=== PATIENT | female | born 1985 | race Caucasian/White ===

== ENCOUNTER 2019-12-20 11:11 | Emergency (ER) | payer MEDICARE, MEDICAID, SELFPAY ==
--- NOTE | ~2019-12-20 | XR_ITS ---
EXAMINATION: XR chest 2V EXAM DATE: 12/20/2019 12:40 INDICATION: Fever, cough and congestion. TECHNIQUE: Frontal and lateral projections of the chest obtained and reviewed. Comparison is made to prior examination from 09/15/2017. FINDINGS: There are cholecystectomy clips. The lungs are clear. There are no pleural effusions. Th e cardiomediastinal silhouette is within normal limits. There is no pneumothorax suspected. The bon es and soft tissues are unremarkable. IMPRESSION: No acute cardiopulmonary findings. Reviewed, dictated and finalized at location B. LOGIST
--- NOTE | ~2019-12-20 | US_ITS ---
EXAMINATION: US right upper quadrant DATE: 12/20/2019 17:06 INDICATION: Right upper quadrant pain TECHNIQUE: Multiple grayscale and Doppler ultrasound images of the abdomen were obtained. COMPARISON: CT, 11/12/2017 FINDINGS: The pancreas is obscured by bowel gas. The liver is normal with normal echogenicity and ech otexture. No surface nodularity. Normal hepatopetal flow in the main portal vein. The gallbladder is surgically absent. The dilated common bile duct measures 10 mm. No definite common bile duct stone or stricture is identified. IMPRESSION: 1. Dilated common bile duct, more than typically expected for post cholecystectomy state. No etiology identified. Reviewed, dictated and finalized at location A. R SEPARATION DESIGNER IMPRESSION: 1. Dilated common bile duct, more than typically expected for post cholecystect allan state. No etiology identified.
--- NOTE | 2019-12-20 11:59 | PC.NURSE ---
Call to waiting room for triage, no answer.
[2019-12-20 12:13] VITALS: BP 130/82; PULSE 88; RESP 18; TEMP 37.2; O2SAT 97
[2019-12-20 12:42] LABS: Basophils Percent Auto 0.3 % (0.2-1.2); Hematocrit 43.1 % (37.0-47.0); Hemoglobin 14.4 g/dL (12.0-15.0); Lymphocytes Absolute Auto 1.17 K/mm3 (0.9-3.2); Lymphocytes Percent Auto 30.9 % (18.3-44.2); Mean Corpuscular HGB Conc 33.4 g/dl (32-36); Mean Corpuscular Hemoglobin 32.3 pg (26-34); Mean Corpuscular Volume 96.6 fl (80-100); Mean Platelet Volume 10.7 fl (7.4-10.4); Monocytes Absolute Auto 0.5 K/mm3 (0.1-0.6); Monocytes Percent Auto 14.2 % (2.6-8.5); Neutrophils Absolute Auto 2.1 K/mm3 (1.3-6.7); Neutrophils Percent Auto 54.6 % (45.5-73.1); Platelet Count Result 200 k/mm3 (150-375); Red Blood Count 4.46 M/mm3 (4.2-5.4); Red Cell Distribution Width 13.1 % (11.5-14.5); White Blood Count 3.8 K/mm3 (4.5-10.0)
[2019-12-20 12:48] LABS: Add Urine Microscopic? YES; Appearance Urine Cloudy (Clear); Bacteria Urine Trace /hpf; Bilirubin Urine Negative (Negative); Blood Urine 1+ (Negative); Color Urine Straw (Yellow); Glucose Urine UA Negative (Negative); Ketones Urine Negative (Negative); Leukocyte Esterase Ur Negative LEU/UL (Negative); Mucus Urine Rare /lpf; Nitrate Urine Negative (Negative); Protein Urine Negative (Negative); RBC Urine 0-2 /hpf (0-2); Specific Grav Ur 1.006 (1.001-1.035); Squamous Epithelial Cell Urine Many /hpf (Few); Urobilinogen Urine Negative mg/dL (<2.0); WBC Urine 0-3 /hpf
[2019-12-20 12:56] LABS: Alanine Aminotransferase 178 U/L (4-35); Albumin Level 4.7 g/dL (3.5-5.1); Alkaline Phosphatase 84 U/L (38-126); Aspartate Amino Transferase 156 U/L (14-36); Bilirubin,Total 0.6 mg/dL (0.2-1.3); Blood Urea Nitrogen 11 mg/dL (7-17); Calcium 8.9 mg/dL (8.4-10.2); Carbon Dioxide 26 mmol/L (22-30); Chloride 98 mmol/L (98-107); Estimated CRCL calculation 117 ml/min; Estimated Glomerular Filt Rate > 60; Glucose 91 mg/dL (65-105); Potassium 4.2 mmol/L (3.4-5.0); Sodium 138 mmol/L (137-145)
[2019-12-20 13:26] LABS: Monoscreen Negative (Negative); Negative Monotest Control Negative (Negative); Positive Monotest Control Positive (Positive)
--- NOTE | 2019-12-20 16:35 | ED.FEVER ---
HPI - Fever General Chief Complaint: Fever Stated Complaint: elevated liver enzymes, fever, shaking AMA Time Seen by Provider: 12/20/19 16:33 Source: patient and other (Triage note) Mode of arrival: ambulatory Limitations: no limitations History of Present Illness HPI Narrative: The pt is a 34 y/o female who presents to the ED c/o fever onset 0300 one day ago. Pt states that when she finally measured her temperature rectally, she had a temperature of 103 degrees. Pt was admitted at [facility] due to having elevated liver enzymes, but she states that she left AMA today due to not being cared for properly. Per triage note, pt received Tylenol at 1030 prior to leaving today. The pt reports myalgia, jerking, and cough. Pt reports that she has a PMHx of asthma, Bipolar disorder, and DVT. MD elicited complaint: fever Onset (ago): day(s) (1) Associated symptoms: myalgias, cough and other (jerking) Treatments prior to arrival fever: acetaminophen Related Data Home Medications Medication Instructions Recorded Confirmed albuterol sulfate 90 mcg/actuation 2 puff INHALATION Q4-6H PRN gm 10/19/19 aerosol inhaler cyclobenzaprine 10 mg tablet 10 mg PO TID 10/19/19 gabapentin 400 mg capsule 400 mg PO QID cap 10/19/19 hydrocodone 10 mg-acetaminophen 1 tablet PO Q8H PRN 10/19/19 325 mg tablet lamotrigine 150 mg tablet 150 mg PO DAILY 10/19/19 lisinopril 40 mg tablet 40 mg PO DAILY 10/19/19 lorazepam 0.5 mg tablet 0.5 mg PO DAILY PRN 10/19/19 rivaroxaban 20 mg tablet 20 mg PO QPM 10/19/19 vortioxetine 20 mg tablet 20 mg PO DAILY 10/19/19 zolpidem 10 mg tablet 10 mg PO ONCE PRN 10/19/19 cariprazine 1.5 mg capsule 1.5 mg PO DAILY 12/18/19 Allergies Allergy/AdvReac Type Severity Reaction Status Date / Time oxycodone Allergy Intermediate lip Verified 12/18/19 11:14 swelling propoxyphene Allergy Intermediate hives, lip Verified 12/18/19 11:14 swelling latex Allergy Unknown Rash Verified 12/18/19 11:14 Contrast Media AdvReac Mild itching Uncoded 12/18/19 11:14 only Review of Systems Review of Systems: All systems reviewed & are unremarkable except as noted in HPI and below Constitutional: Constitutional: Reports fever(s) Respiratory: Respiratory: Reports cough Musculoskeletal: Musculoskeletal: Reports myalgias Neurologic: Reports other (Jerking) [facility] Past Medical History Medical History (Updated 12/20/19 @ 17:11 by Gera Yap) Abnormal uterine bleeding Anxiety Arthritis Asthma Bipolar 1 disorder Depression DVT (deep venous thrombosis) Endometriosis Fibroids GERD (gastroesophageal reflux disease) GI bleed HLD (hyperlipidemia) HTN (hypertension) Kidney stones Left ovarian cyst Leg fracture, left Pancreatitis PID (pelvic inflammatory disease) Pneumonia Previous known suicide attempt PTSD (post-traumatic stress disorder) PUD (peptic ulcer disease) Surgical History Surgical History (Updated 12/20/19 @ 17:11 by Gera Yap) H/O hand surgery H/O ovarian cystectomy Left H/O vascular surgery Left leg vein graft H/O: hysterectomy History of appendectomy History of cholecystectomy History of kidney surgery Ureteral stent History of left knee replacement Hx of tonsillectomy Family History Family History (Updated 06/05/16 @ 23:19 by DOCTOR UNKNOWN) Mother Hypertension Father Hypertension Family history of alcoholism Family history of diabetes mellitus in first degree relative Patient's father is in good health Sibling Family history of diabetes mellitus in first degree relative Social History Social History Smoking status: Never smoker Second hand tobacco smoke exposure: No Alcohol intake: never Gender identity (if verbalized by the patient): Female Comments PCP: Dr. Quiroz Exam Const: General: no acute distress and alert Orientation/consciousness: patient oriented x3 HENMT: Head: normal to inspection Eyes:
[2019-12-20 16:37] VITALS: BP 152/99; PULSE 91; O2SAT 99
[2019-12-20 16:43] VITALS: TEMP 37.5
[2019-12-20 17:46] VITALS: BP 131/80
== END 2019-12-20 17:47 | disposition home or self-care (01) ==
PROVIDERS: Emergency Medicine; Emergency Provider Family Medicine; PCP Internal Medicine
DX: J10.1 Influenza due to other identified influenza virus with other respiratory manifestations (principal); R94.5 Abnormal results of liver function studies; J45.909 Unspecified asthma, uncomplicated; Z86.718 Personal history of other venous thrombosis and embolism; F31.9 Bipolar disorder, unspecified; F41.9 Anxiety disorder, unspecified; K21.9 Gastro-esophageal reflux disease without esophagitis; E78.5 Hyperlipidemia, unspecified; I10 Essential (primary) hypertension; F43.10 Post-traumatic stress disorder, unspecified; Z96.652 Presence of left artificial knee joint
CPT/HCPCS: 36415; 71046; 76705; 80053; 81001; 85025; 86308; 87804; 99284

== ENCOUNTER 2019-12-24 13:39 | Emergency (ER) | payer MEDICARE, MEDICAID, SELFPAY ==
[2019-12-24 13:47] VITALS: BP 142/101; PULSE 89; RESP 16; TEMP 36.8; O2SAT 99
--- NOTE | 2019-12-24 15:07 | ED.WEAKNESS ---
HPI - Weakness General Chief complaint: Weakness Stated complaint: flu, v/d Time Seen by Provider: 12/24/19 15:07 Source: patient Mode of arrival: ambulatory Limitations: no limitations History of Present Illness HPI Narrative: A 34 y/o female presents to the ED with c/o generalized weakness. Pt states she was seen by her PCP on Wednesday (6 days ago) and was told that she had elevated liver enzymes, however it was nothing to be too concerned about. 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 Pt's liver specialist is at [facility]. Pt has tested negative for Hepatitis B and C in the past. Pt's liver enzymes can run into the 1000s and she is on Metformin to regulate this. Pt was seen at [facility] on Wednesday (5 days ago) and was negative for the flu but was admitted for high liver enzymes. Pt signed out AMA on Wednesday (4 days ago) and came to [place] for evaluation the same day. Pt tested positive for the flu and was d/c with Tamaflu. Pt reports body shakes and states that she has felt dizzy all day. Pt's LNMP was in May 2017 and notes that she had a partial hysterectomy due to endometriosis. She reports N/V x3 today and occasional alcohol use, but denies diarrhea, constipation, dysuria, urinary frequency, and smoking. Location: generalized Related Data Home Medications Medication Instructions Recorded Confirmed albuterol sulfate 90 mcg/actuation 2 puff INHALATION Q4-6H PRN gm 10/19/19 12/24/19 aerosol inhaler cyclobenzaprine 10 mg tablet 10 mg PO TID 10/19/19 12/24/19 gabapentin 400 mg capsule 400 mg PO QID cap 10/19/19 12/24/19 hydrocodone 10 mg-acetaminophen 1 tablet PO Q8H PRN 10/19/19 12/24/19 325 mg tablet lamotrigine 150 mg tablet 150 mg PO DAILY 10/19/19 12/24/19 lisinopril 40 mg tablet 40 mg PO DAILY 10/19/19 12/24/19 lorazepam 0.5 mg tablet 0.5 mg PO DAILY PRN 10/19/19 12/24/19 rivaroxaban 20 mg tablet 20 mg PO QPM 10/19/19 12/24/19 vortioxetine 20 mg tablet 20 mg PO DAILY 10/19/19 12/24/19 zolpidem 10 mg tablet 10 mg PO ONCE PRN 10/19/19 12/24/19 cariprazine 1.5 mg capsule 1.5 mg PO DAILY 12/18/19 12/24/19 Allergies Allergy/AdvReac Type Severity Reaction Status Date / Time oxycodone Allergy Intermediate lip Verified 12/24/19 15:27 swelling propoxyphene Allergy Intermediate hives, lip Verified 12/24/19 15:27 swelling latex Allergy Unknown Rash Verified 12/24/19 15:27 Contrast Media AdvReac Mild itching Uncoded 12/24/19 15:27 only Review of Systems Review of Systems: All systems reviewed & are unremarkable except as noted in HPI and below Constitutional: Constitutional: Reports weakness (generalized) Comments: Reports: body shakes Gastrointestinal: Gastrointestinal: Denies constipation, Denies diarrhea, Reports nausea and Reports vomiting (x3) Genitourinary: Genitourinary: Denies nocturia and Denies dysuria Neurologic: Reports dizziness PMFSH Past Medical History Medical History Abnormal uterine bleeding Anxiety Arthritis Asthma Bipolar 1 disorder Depression DVT (deep venous thrombosis) Endometriosis Fibroids GERD (gastroesophageal reflux disease) GI bleed HLD (hyperlipidemia) HTN (hypertension) Kidney stones Left ovarian cyst Leg fracture, left Pancreatitis PID (pelvic inflammatory disease) Pneumonia Previous known suicide attempt PTSD (post-traumatic stress disorder) PUD (peptic ulcer disease) Surgical History Surgical History H/O hand surgery H/O ovarian cystectomy Left H/O vascular surgery Left leg vein graft H/O: hysterectomy History of appendectomy History of cholecystectomy History of kidney surgery Ureteral stent History of left knee replacement Hx of tonsillectomy Family History Family History Mother Hypertension Father Hypertension Family h
[2019-12-24 15:24] VITALS: BP 141/102; PULSE 77; RESP 20; O2SAT 100
[2019-12-24 15:39] LABS: Basophils Percent Auto 0.1 % (0.2-1.2); Eosinophils Percent Auto 0.4 % (0-4.4); Hematocrit 43.9 % (37.0-47.0); Hemoglobin 14.7 g/dL (12.0-15.0); Immature Granulocyte Absolute 0.01 K/mm3 (0.00-0.031); Immature Granulocyte Percent A 0.1 % (0-0.5); Lymphocytes Percent Auto 37.2 % (18.3-44.2); Mean Corpuscular HGB Conc 33.5 g/dl (32-36); Mean Corpuscular Volume 95.6 fl (80-100); Mean Platelet Volume 10.6 fl (7.4-10.4); Monocytes Absolute Auto 0.6 K/mm3 (0.1-0.6); Monocytes Percent Auto 8.3 % (2.6-8.5); Neutrophils Absolute Auto 3.6 K/mm3 (1.3-6.7); Neutrophils Percent Auto 53.9 % (45.5-73.1); Platelet Count Result 225 k/mm3 (150-375); Red Blood Count 4.59 M/mm3 (4.2-5.4); White Blood Count 6.7 K/mm3 (4.5-10.0)
[2019-12-24 15:48] LABS: Alanine Aminotransferase 159 U/L (4-35); Albumin Level 4.4 g/dL (3.5-5.1); Alkaline Phosphatase 74 U/L (38-126); Aspartate Amino Transferase 117 U/L (14-36); Bilirubin,Total 0.5 mg/dL (0.2-1.3); Blood Urea Nitrogen 11 mg/dL (7-17); Calcium 9.2 mg/dL (8.4-10.2); Carbon Dioxide 24 mmol/L (22-30); Chloride 104 mmol/L (98-107); Estimated CRCL calculation 151 ml/min; Estimated Glomerular Filt Rate > 60; Glucose 106 mg/dL (65-105); Lipase 173 U/L (23-300); Potassium 3.8 mmol/L (3.4-5.0); Sodium 139 mmol/L (137-145)
[2019-12-24 16:05] LABS: Add Urine Microscopic? NO; Appearance Urine Clear (Clear); Bilirubin Urine Negative (Negative); Blood Urine Negative (Negative); Color Urine Straw (Yellow); Glucose Urine UA Negative (Negative); Ketones Urine Negative (Negative); Leukocyte Esterase Ur Negative LEU/UL (Negative); Nitrate Urine Negative (Negative); Protein Urine Negative (Negative); Specific Grav Ur 1.008 (1.001-1.035); Urobilinogen Urine Negative mg/dL (<2.0)
[2019-12-24] MEDS: METOCLOPRAMIDE HCL INJ 10 MG/2 ML VIAL (16:20)
[2019-12-24 16:35] VITALS: BP 125/95; PULSE 74; RESP 18; TEMP 36.4; O2SAT 95
== END 2019-12-24 16:38 | disposition home or self-care (01) ==
PROVIDERS: Emergency Provider Emergency Medicine; PCP Internal Medicine
DX: B34.9 Viral infection, unspecified (principal); M19.90 Unspecified osteoarthritis, unspecified site; J45.909 Unspecified asthma, uncomplicated; Z86.718 Personal history of other venous thrombosis and embolism; N80.9 Endometriosis, unspecified; K21.9 Gastro-esophageal reflux disease without esophagitis; E78.5 Hyperlipidemia, unspecified; I10 Essential (primary) hypertension; Z87.442 Personal history of urinary calculi; Z87.11 Personal history of peptic ulcer disease; Z96.652 Presence of left artificial knee joint; F41.9 Anxiety disorder, unspecified; F31.9 Bipolar disorder, unspecified; F43.10 Post-traumatic stress disorder, unspecified; Z79.01 Long term (current) use of anticoagulants
CPT/HCPCS: 36415; 80053; 81003; 83690; 85025; 96374; 99284; J1200; J2765

== ENCOUNTER 2020-04-24 13:53 | Emergency (ER) | payer MEDICARE, MEDICAID, SELFPAY ==
--- NOTE | ~2020-04-24 | CT_ITS ---
EXAMINATION: CT abdomen pelvis wo con DATE: 04/24/2020 15:05 INDICATION: Nausea, vomiting, and diarrhea. Abdominal pain. TECHNIQUE: Computed tomography (CT) of the abdomen and pelvis was performed without intravenous contr ast. Automated exposure control and iterative reconstruction technique were employed. The dose-length product was 1569.71 mGy-cm. COMPARISON: CT abdomen and pelvis 11/12/2017 FINDINGS: The visualized portions of the lung bases demonstrate mild atelectasis. No pleural effusion . The heart size is normal. No pericardial effusion. The liver is normal. There are changes of cholec ystectomy. The spleen, pancreas, adrenal glands, and right kidney are normal. There is a 1.5 cm hemor rhagic cyst in left kidney. There is no urolithiasis. There is a 3.7 cm cyst in left ovary. There are no dilated loops of bowel. There are no pathologically enlarged lymph nodes. There is no free intrap eritoneal fluid. There is mild thoracolumbar spondylosis. IMPRESSION: 1. 3.7 cm cyst in left ovary, likely a follicular cyst. Reviewed, dictated and finalized at location A.
--- NOTE | ~2020-04-24 | NM_ITS ---
EXAMINATION: NM pulmonary perfusion DATE: 04/24/2020 17:45 INDICATION: Flank pain and dyspnea TECHNIQUE: 5.24 mCi Tc-99m MAA by intravenous route. Scintigraphic images of the chest were obtained . COMPARISON: Chest radiograph dated 04/24/2020 and VQ scan dated 09/15/2017 FINDINGS: No interval change in relatively homogeneous perfusion throughout the lungs. No discrete perfusion d efects identified. IMPRESSION: 1. Normal perfusion scan of the lungs. Reviewed, dictated and finalized at location A.
--- NOTE | ~2020-04-24 | XR_ITS ---
EXAMINATION: XR chest 1V portable DATE: 04/24/2020 17:09 INDICATION: Right flank pain. TECHNIQUE: frontal view of the chest was obtained. COMPARISON: Chest radiograph dated 12/20/2019 FINDINGS: The lungs remain clear with no focal airspace opacities, pulmonary edema, pleural effusion or pneumot horax. The cardiomediastinal silhouette is normal. Cholecystectomy clips the right upper quadrant. IMPRESSION: 1. No acute cardiopulmonary disease. Reviewed, dictated and finalized at location A.
[2020-04-24 14:09] VITALS: BP 139/98; PULSE 70; RESP 16; TEMP 36.6; O2SAT 100
[2020-04-24 14:25] LABS: Basophils Percent Auto 0.4 % (0.2-1.2); Eosinophils Absolute Auto 0.2 K/mm3 (0-0.3); Eosinophils Percent Auto 1.8 % (0-4.4); Hematocrit 45.1 % (37.0-47.0); Hemoglobin 15.1 g/dL (12.0-15.0); Immature Granulocyte Absolute 0.02 K/mm3 (0.00-0.031); Immature Granulocyte Percent A 0.2 % (0-0.5); Lymphocytes Absolute Auto 2.62 K/mm3 (0.9-3.2); Mean Corpuscular HGB Conc 33.5 g/dl (32-36); Mean Corpuscular Hemoglobin 32.3 pg (26-34); Mean Corpuscular Volume 96.4 fl (80-100); Mean Platelet Volume 10.4 fl (7.4-10.4); Monocytes Absolute Auto 0.4 K/mm3 (0.1-0.6); Monocytes Percent Auto 4.2 % (2.6-8.5); Neutrophils Absolute Auto 5.8 K/mm3 (1.3-6.7); Neutrophils Percent Auto 64.4 % (45.5-73.1); Platelet Count Result 280 k/mm3 (150-375); Red Blood Count 4.68 M/mm3 (4.2-5.4); Red Cell Distribution Width 12.4 % (11.5-14.5)
--- NOTE | 2020-04-24 14:29 | ED.ABDPAIN ---
HPI - Abdominal Pain General Chief Complaint: Abdominal Pain Stated Complaint: ABD PAIN Time Seen by Provider: 04/24/20 14:20 Source: RN notes reviewed History of Present Illness HPI narrative: Patient presents emergency department from home for abdominal pain. Patient states pain began 3 days ago. Pain is located right upper quadrant does not radiate. Described as cramping in nature and worse with eating. She notes associated nausea vomiting and diarrhea. Denies any fevers or chills chest pain shortness of breath or any other symptoms. Patient states she has taken no pain medication at home for the pain. Related Data Home Medications Medication Instructions Recorded Confirmed cyclobenzaprine 10 mg tablet 10 mg PO TID 10/19/19 12/24/19 gabapentin 400 mg capsule 400 mg PO QID cap 10/19/19 12/24/19 hydrocodone 10 mg-acetaminophen 1 tablet PO Q8H PRN 10/19/19 12/24/19 325 mg tablet lamotrigine 150 mg tablet 150 mg PO DAILY 10/19/19 12/24/19 lisinopril 40 mg tablet 40 mg PO DAILY 10/19/19 12/24/19 lorazepam 0.5 mg tablet 0.5 mg PO DAILY PRN 10/19/19 12/24/19 rivaroxaban 20 mg tablet 20 mg PO QPM 10/19/19 12/24/19 vortioxetine 20 mg tablet 20 mg PO DAILY 10/19/19 12/24/19 zolpidem 10 mg tablet 10 mg PO ONCE PRN 10/19/19 12/24/19 cariprazine 1.5 mg capsule 1.5 mg PO DAILY 12/18/19 12/24/19 Allergies Allergy/AdvReac Type Severity Reaction Status Date / Time oxycodone Allergy Intermediate lip Verified 12/24/19 15:27 swelling propoxyphene Allergy Intermediate hives, lip Verified 12/24/19 15:27 swelling latex Allergy Unknown Rash Verified 12/24/19 15:27 Contrast Media AdvReac Mild itching Uncoded 12/24/19 15:27 only Review of Systems Review of Systems: Narrative: Gen.: Denies fevers or chills ENT: Denies congestion Respiratory: Denies shortness of breath or cough CV: Denies chest pain or palpitations GI: See HPI denies burning, urgency, frequency or hematuria Musculoskeletal: Denies back pain or muscle pain Neuro: Denies numbness, tingling, weakness or focal weakness Skin: Denies rash Except as documented, all other systems reviewed and negative FORMERLY [facility] Past Medical History Medical History Abnormal uterine bleeding Anxiety Arthritis Asthma Bipolar 1 disorder Depression DVT (deep venous thrombosis) Endometriosis Fibroids GERD (gastroesophageal reflux disease) GI bleed HLD (hyperlipidemia) HTN (hypertension) Kidney stones Left ovarian cyst Leg fracture, left Pancreatitis PID (pelvic inflammatory disease) Pneumonia Previous known suicide attempt PTSD (post-traumatic stress disorder) PUD (peptic ulcer disease) Social History Social History Smoking status: Never smoker Second hand tobacco smoke exposure: No Alcohol intake: never Gender identity (if verbalized by the patient): Female Exam Narrative: Exam Narrative: APPEARANCE: No acute distress, nontoxic, resting in bed HEENT: Normocephalic, atraumatic, OMM RESPIRATORY: No respiratory distress, clear to auscultation bilaterally with no rhonchi wheezing or rales CARDIOVASCULAR: RRR s murmur ABDOMINAL: Soft, nondistended, tender palpation right upper quadrant, no tenderness left upper quadrant left lower quadrant lower quadrant, no rebound or guarding MUSCULOSKELETAl: Moves all extremities. No clubbing, cyanosis or edema. NEURO: Awake and alert. Following commands, speech normal, no focal deficits SKIN:: Warm, dry. Normal Color PSYCHIATRIC: Normal affect/mood Course Course Emergency Course: Patient states that they are feeling much better at this time. States abdominal pain has improved. Repeat abdominal exam shows the patient's abdomen to be soft with no surgical abdomen present discussed with patient results of workup and diagnosis. Discussed need for follow-up with primary care physician, reasons to return to the emergency d
[2020-04-24 14:33] LABS: Add Urine Microscopic? YES; Appearance Urine Clear (Clear); Bacteria Urine Trace /hpf; Bilirubin Urine Negative (Negative); Blood Urine Negative (Negative); Color Urine Yellow (Yellow); Glucose Urine UA Negative (Negative); Ketones Urine Negative (Negative); Leukocyte Esterase Ur Negative LEU/UL (Negative); Nitrate Urine Negative (Negative); Protein Urine Negative (Negative); RBC Urine 0-2 /hpf (0-2); Specific Grav Ur 1.011 (1.001-1.035); Squamous Epithelial Cell Urine Many /hpf (Few); Urobilinogen Urine Negative mg/dL (<2.0)
[2020-04-24 14:36] LABS: Alanine Aminotransferase 42 U/L (4-35); Albumin Level 4.2 g/dL (3.5-5.1); Alkaline Phosphatase 61 U/L (38-126); Aspartate Amino Transferase 45 U/L (14-36); Bilirubin,Total 0.2 mg/dL (0.2-1.3); Blood Urea Nitrogen 12 mg/dL (7-17); Calcium 9.2 mg/dL (8.4-10.2); Carbon Dioxide 28 mmol/L (22-30); Chloride 105 mmol/L (98-107); Estimated CRCL calculation 131 ml/min; Estimated Glomerular Filt Rate > 60; Glucose 94 mg/dL (65-105); Lipase 111 U/L (23-300); Potassium 4.5 mmol/L (3.4-5.0); Sodium 139 mmol/L (137-145)
[2020-04-24] MEDS: SODIUM CHLORIDE 0.9% IV 1,000 ML 999 ML IV CONT (14:44)
[2020-04-24] MEDS: KETOROLAC 30 MG/ML VIAL (*BKC) IV PUSH (14:45)
[2020-04-24] MEDS: ONDANSETRON INJ 4 MG/2 ML VIAL IV PUSH (14:45)
[2020-04-24] MEDS: MORPHINE SULFATE 4 MG/ML INJ IV PUSH (16:08)
[2020-04-24] MEDS: PROMETHAZINE HCL 25 MG/ML AMPUL 12.5 MG IV PUSH (16:22)
== END 2020-04-24 18:29 | disposition home or self-care (01) ==
PROVIDERS: Emergency Provider Emergency Medicine; PCP Internal Medicine
DX: R10.11 Right upper quadrant pain (principal); N83.202 Unspecified ovarian cyst, left side; M19.90 Unspecified osteoarthritis, unspecified site; F41.9 Anxiety disorder, unspecified; J45.909 Unspecified asthma, uncomplicated; F31.9 Bipolar disorder, unspecified; Z86.718 Personal history of other venous thrombosis and embolism; K21.9 Gastro-esophageal reflux disease without esophagitis; E78.5 Hyperlipidemia, unspecified; I10 Essential (primary) hypertension; Z87.442 Personal history of urinary calculi; Z86.711 Personal history of pulmonary embolism
CPT/HCPCS: 36415; 71045; 74176; 78580; 80053; 81001; 83690; 85025; 96361; 96374; 96375; 99284; A9270; A9540; J1885; J2270; J2405; J2550; J7030

== ENCOUNTER 2020-06-19 11:01 | Outpatient (CLI) | payer MEDICARE, MEDICAID, SELFPAY ==
[2020-06-19 12:12] LABS: Alanine Aminotransferase 41 U/L (4-35); Albumin Level 4.3 g/dL (3.5-5.1); Alkaline Phosphatase 71 U/L (38-126); Anion Gap 6 mmol/L (8-16); Aspartate Amino Transferase 34 U/L (14-36); Bilirubin,Total 0.4 mg/dL (0.2-1.3); Blood Urea Nitrogen 15 mg/dL (7-17); Calcium 9.2 mg/dL (8.4-10.2); Carbon Dioxide 25 mmol/L (22-30); Chloride 105 mmol/L (98-107); Estimated Glomerular Filt Rate > 60; Glucose 97 mg/dL (65-105); Lipase 125 U/L (23-300); Potassium 4.1 mmol/L (3.4-5.0); Sodium 136 mmol/L (137-145)
[2020-06-22 22:48] LABS: NIL 0.05 IU/mL; Quantiferon TB Plus, 1T NEGATIVE (NEGATIVE); TB1-NIL <0.00 IU/mL; TB2-NIL <0.00 IU/mL
== END 2020-06-19 11:02 | disposition home or self-care (01) ==
LOC: ANHLAB 11:04
PROVIDERS: PCP Physician Assistant; Visit Provider Internal Medicine
DX: R10.9 Unspecified abdominal pain (principal); Z20.1 Contact with and (suspected) exposure to tuberculosis
CPT/HCPCS: 36415; 80053; 83690; 86480

== ENCOUNTER 2020-07-31 10:36 | Outpatient (CLI) | payer MEDICARE, MEDICAID, SELFPAY ==
--- NOTE | 2020-08-21 07:17 | SLEEP_ITS ---
Home Sleep Test DATE OF STUDY: 07/31/2020 ORDERING PHYSICIAN: Quique Quiroz D.O. REASON FOR STUDY: Hypersomnia. HISTORY: This patient is a 35-year-old female, 5 feet 10 inches tall, weighing 250 pounds with a body mass index of 35.8. She has excessive daytime fatigue and sleepiness. This has been going on for several years. She does snore, she constantly has trouble sleeping when she has a cold. She occasionally gasps for breath at night and has breathing problems at night observed by others. She occasionally sweats excessively at night. She frequently notices her heart pounding or beating irregularly at night. She does not fall asleep during the day. She does not fall asleep involuntarily or while driving. She does not fall asleep during physical effort. She occasionally has loss of muscle tone with strong emotion. Occasionally has daytime difficulties due to excessive sleepiness, occasionally feels paralyzed when waking or falling asleep, and occasionally has vivid dreamlike scenes upon awakening or falling asleep. She frequently is afraid to go to sleep, frequently has nightmares, constantly remembers her dreams, and frequently has racing thoughts. She occasionally has feelings of sadness and depression and constantly has anxiety. She frequently has muscular tension, constantly notices parts of her body jerking, and constantly kicks at night. She frequently has crawly, achy feelings in her legs, occasionally has leg pain at night, does not have morning jaw pain. She occasionally grinds her teeth during sleep. She constantly is bothered by pain during the day. She occasionally is awakened by pain at night. She constantly wakes up feeling stiff in the morning with sore achy muscles and pain in the neck and spine. She has panic, insomnia, tremors, poor appetite, headaches, and takes antacids regularly. Normal bedtime is 10 p.m., taking 2 to 3 hours to fall asleep, typically waking 4 to 6 times at night, and staying awake between 15 and 20 minutes, sometimes up to an hour. 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 When she wakes at night, she will often go to the bathroom. If she has had a nightmare, she may stay up. Her normal wake up time is 6 a.m. On the weekends, she may stay awake later between 10 p.m. and midnight and wake at 7 a.m. She estimates somewhere between 2 and 4 hours of sleep each night. She is not getting enough sleep and this prevents her from having social activities. She denies taking naps. A short nap is not refreshing. She is usually drowsy in the morning for 2 hours. She feels better in the afternoon. MEDICAL COMORBIDITIES: Anemia, PTSD, manic depression, asthma, heartburn, diarrhea, and kidney stones. MEDICATIONS: 1. Zolpidem 100 mg at bedtime. 2. Gabapentin 400 mg 4 times a day. 3. Lisinopril 40 mg a day. 4. Esomeprazole 40 mg a day. 5. Ventolin inhaler 2 puffs q.6 hours p.r.n. 6. Hydrocodone 10/325 one tablet every 6 hours p.r.n. HABITS: Never smoked tobacco. Caffeine, she drinks coffee daily. No alcohol or recreational drugs. DESCRIPTION OF THE STUDY: On the [place] Sleepiness Scale, her score is elevated at 12. This was conducted as an unattended type 3 portable home sleep test using 4-channel monitoring including respiratory effort channel, snoring channel, oxygen saturation channel, and heart rate channel. The study was scored using [facility] guidelines. Duration of the testing was 7 hours 47 minutes. The apnea-hypopnea index was 3.3, which is within the normal range. Oxygen desaturation index is 2.7, which is normal. The lowest desaturation is 92% within the normal range. The patient had 6 apneas. The majority of these 5/6, 83% were obstructive, 1 apnea was central, 17%. She had 20 h
== END 2020-07-31 10:37 | disposition home or self-care (01) ==
LOC: ANHCSM 10:37
PROVIDERS: PCP Physician Assistant; Visit Provider Internal Medicine
DX: G47.10 Hypersomnia, unspecified (principal); R53.83 Other fatigue
CPT/HCPCS: 95806

== ENCOUNTER 2020-08-11 05:23 | Emergency (ER) | payer MEDICARE, MEDICAID, SELFPAY ==
--- NOTE | ~2020-08-11 | CT_ITS ---
EXAMINATION: CT abdomen pelvis wo con EXAM DATE: 08/11/2020 06:35 INDICATION: Abdominal pain and vomiting. TECHNIQUE: Spiral CT of the abdomen and pelvis was performed without contrast. Axial, coronal and s agittal images were reviewed. The dose-length product (DLP) for this examination was 1386.89 mGy-cm. The exposure was tailored according to patient size (auto mA exposure control), and iterative recon struction (ASIR) was used as additional dose reduction technique. Comparison is made to prior examina tion from 04/24/2020. FINDINGS: Liver dome was excluded from the study. The liver, spleen, adrenal glands and pancreas are unremarkable. There are cholecystectomy clips. There is no nephrolithiasis or hydronephrosis. Ther e is a left renal hemorrhagic cyst measuring 1.4 cm. The uterus is not identified and has likely been surgically resected. The bladder is unremarkable. There is no retroperitoneal or pelvic lymphadeno leticia. The appendix is normal. The stomach and small bowel are unremarkable. There is expected amount of c olonic stool. No free intraperitoneal gas. The heart is normal in size. There are no pericardial or pleural effusions. The lung bases are unremarkable. There are no osteoblastic or osteolytic les ions identified. IMPRESSION: 1. No acute intra-abdominal findings. Reviewed, dictated and finalized at location A.
[2020-08-11 05:36] VITALS: BP 148/96; PULSE 80; RESP 20; TEMP 36.8; O2SAT 97
--- NOTE | 2020-08-11 05:41 | ED.ABDPAIN ---
HPI - Abdominal Pain General Chief Complaint: Abdominal Pain <Cindy Ya MD - Last Filed: 08/11/20 19:43> Stated Complaint: flank pain <Cindy Ya MD - Last Filed: 08/11/20 19:43> Time Seen by Provider: 08/11/20 05:24 <Cindy Ya MD - Last Filed: 08/11/20 19:43> Source: patient <Cindy Ya MD - Last Filed: 08/11/20 19:43> Mode of arrival: EMS <Cindy Ya MD - Last Filed: 08/11/20 19:43> Limitations: no limitations <Cindy Ya MD - Last Filed: 08/11/20 19:43> History of Present Illness HPI narrative: This patient is a 35 year old female with history of chronic pain who presents for evaluation of lower abdominal pain and lower back pain. This pain has been present for past 4 days. She report associated nausea, vomiting and intermittent hematuria. She denies fever or chills. She takes hydrocodone 10 mg/325 mg and her last dose was yesterday. <Cindy Ya MD - Last Filed: 08/11/20 19:43> MD elicited complaint: abdominal pain <Cindy Ya MD - Last Filed: 08/11/20 19:43> Related Data Home Medications: Home Medications Medication Instructions Recorded Confirmed cyclobenzaprine 10 mg tablet 10 mg PO TID 10/19/19 12/24/19 gabapentin 400 mg capsule 400 mg PO QID cap 10/19/19 12/24/19 hydrocodone 10 mg-acetaminophen 1 tablet PO Q8H PRN 10/19/19 12/24/19 325 mg tablet lamotrigine 150 mg tablet 150 mg PO DAILY 10/19/19 12/24/19 lorazepam 0.5 mg tablet 0.5 mg PO DAILY PRN 10/19/19 12/24/19 rivaroxaban 20 mg tablet 20 mg PO QPM 10/19/19 12/24/19 vortioxetine 20 mg tablet 20 mg PO DAILY 10/19/19 12/24/19 zolpidem 10 mg tablet 10 mg PO ONCE PRN 12/12/19 02/16/20 cariprazine 1.5 mg capsule 1.5 mg PO DAILY 12/18/19 12/24/19 lurasidone 40 mg tablet 40 mg PO DAILY 06/19/20 <Cindy Ya MD - Last Filed: 08/11/20 19:43> Allergies/Adverse Reactions: Allergies Allergy/AdvReac Type Severity Reaction Status Date / Time oxycodone Allergy Intermediate lip Verified 08/11/20 06:39 swelling propoxyphene Allergy Intermediate hives, lip Verified 08/11/20 06:39 swelling Iodinated Contrast Media Allergy Unknown Itching Verified 08/11/20 07:02 latex Allergy Unknown Rash Verified 08/11/20 06:39 Contrast Media AdvReac Mild itching Uncoded 08/11/20 06:39 only <Cindy Ya MD - Last Filed: 08/11/20 19:43> Review of Systems Review of Systems: All systems reviewed & are unremarkable except as noted in HPI and below <Cindy Ya MD - Last Filed: 08/11/20 19:43> [facility] Social History Social History: Social History Smoking status: Never smoker Second hand tobacco smoke exposure: No Alcohol intake: never Gender identity (if verbalized by the patient): Female <Cindy Ya MD - Last Filed: 08/11/20 19:43> Exam Const: General: alert <Cindy Ya MD - Last Filed: 08/11/20 19:43> Orientation/consciousness: patient oriented x3 <Cindy Ya MD - Last Filed: 08/11/20 19:43> Chest: Chest palpation & inspection: normal inspection of the chest <Cindy Ya MD - Last Filed: 08/11/20 19:43> Resp: Effort & Inspection: normal respiratory effort and no retractions <Cindy Ya MD - Last Filed: 08/11/20 19:43> Auscultation: clear to auscultation bilaterally <Cindy Ya MD - Last Filed: 08/11/20 19:43> Cardio: Rate: regular rate <Cindy Ya MD - Last Filed: 08/11/20 19:43> Rhythm: regular rhythm <Cindy Ya MD - Last Filed: 08/11/20 19:43> Heart sounds: no murmurs <Cindy Ya MD - Last Filed: 08/11/20 19:43> GI: GI Palp: Yes Soft to palpation, Yes Tenderness to palpation present (GI), No Guarding due to palpation present (GI), No Rigid due to palpation and No Hernia present <Cindy Ya MD - Last Filed: 08/11/20 19:43> : General: Yes no CVA tenderness <Bernard
[2020-08-11] MEDS: ONDANSETRON INJ 4 MG/2 ML VIAL IV PUSH (06:07)
[2020-08-11] MEDS: KETOROLAC 30 MG/ML VIAL (*BKC) IV PUSH (06:07)
[2020-08-11] MEDS: SODIUM CHLORIDE 0.9% IV 1,000 ML 999 ML IV CONT (06:07)
[2020-08-11 06:34] LABS: Add Urine Microscopic? YES; Appearance Urine Clear (Clear); Bilirubin Urine Negative (Negative); Blood Urine Negative (Negative); Color Urine Yellow (Yellow); Glucose Urine UA Negative (Negative); Ketones Urine Negative (Negative); Leukocyte Esterase Ur Trace LEU/UL (Negative); Mucus Urine Moderate /lpf; Nitrate Urine Negative (Negative); Protein Urine Negative (Negative); RBC Urine 0-2 /hpf (0-2); Specific Grav Ur 1.023 (1.001-1.035); Squamous Epithelial Cell Urine Moderate /hpf (Few); Urobilinogen Urine Negative mg/dL (<2.0); WBC Urine 0-3 /hpf
[2020-08-11 06:52] LABS: Basophils Absolute Auto 0.1 K/mm3 (0.0-0.1); Basophils Percent Auto 0.4 % (0.2-1.2); Eosinophils Absolute Auto 0.2 K/mm3 (0-0.3); Eosinophils Percent Auto 2.1 % (0-4.4); Hematocrit 40.5 % (37.0-47.0); Immature Granulocyte Absolute 0.03 K/mm3 (0.00-0.031); Immature Granulocyte Percent A 0.3 % (0-0.5); Lymphocytes Percent Auto 27.6 % (18.3-44.2); Mean Corpuscular HGB Conc 34.6 g/dl (32-36); Mean Corpuscular Hemoglobin 33.2 pg (26-34); Mean Platelet Volume 10.9 fl (7.4-10.4); Monocytes Absolute Auto 0.7 K/mm3 (0.1-0.6); Monocytes Percent Auto 5.9 % (2.6-8.5); Neutrophils Absolute Auto 7.4 K/mm3 (1.3-6.7); Neutrophils Percent Auto 63.7 % (45.5-73.1); Platelet Count Result 248 k/mm3 (150-375); Red Blood Count 4.22 M/mm3 (4.2-5.4); Red Cell Distribution Width 12.8 % (11.5-14.5); White Blood Count 11.6 K/mm3 (4.5-10.0)
[2020-08-11 07:03] LABS: Alanine Aminotransferase 36 U/L (4-35); Albumin Level 3.8 g/dL (3.5-5.1); Alkaline Phosphatase 70 U/L (38-126); Anion Gap 8 mmol/L (8-16); Aspartate Amino Transferase 36 U/L (14-36); Bilirubin,Total 0.3 mg/dL (0.2-1.3); Blood Urea Nitrogen 17 mg/dL (7-17); Calcium 8.8 mg/dL (8.4-10.2); Carbon Dioxide 28 mmol/L (22-30); Chloride 105 mmol/L (98-107); Estimated CRCL calculation 110 ml/min; Estimated Glomerular Filt Rate > 60; Glucose 100 mg/dL (65-105); Lipase 178 U/L (23-300); Potassium 3.7 mmol/L (3.4-5.0); Sodium 141 mmol/L (137-145)
--- NOTE | 2020-08-11 07:30 | PC.NURSE ---
Report received from LAURE Landeros, to continue care. Pt states her IV was leaking and that she hasn't gotten any of the medications. Note approx 800cc NS remains to be infused. IV restarted, meds given IV for pt c/o pain in her back and legs. Pt drowsy, speech slurred.
--- NOTE | 2020-08-11 08:36 | PC.NURSE ---
SEE PT FROM NURSES STATION SIT UP AND START TO PULL CORDS FROM WALL. PT PULLING AT EKG LEADS AND O2 SAT FROM WALL ATTACHMENT. ENTER ROOM TO SET LIMITS. PT STATES I WANT FUCKING PAIN MEDS. LIMITS SET. PT STATES SHE WANTS TO FUCKING LEAVE THEN. INFORM PT WILL ASK MD FOR PLAN OF CARE. PT CONTINUES TO YELL SHE WANTS TO FUCKING LEAVE. ASK PT TO GET A SET OF VITALS. PT REFUSES. DR GARCIA NOTIFIED.
--- NOTE | 2020-08-11 09:07 | PC.NURSE ---
PT LAYING IN BED WITH BLANKETS OVER HER. INFORMED PT SHE HAS BEEN DISCHARGED AND NEEDS TO GET DRESSED. PT REFUSES TO TALK. PT NOT MOVING. REPEATED. NO RESPONSE. CHARGE NURSE NOTIFIED. SECURITY CALLED. 2 SECURITY OFFICERS AT PT BEDSIDE.
--- NOTE | 2020-08-11 09:14 | PC.NURSE ---
PT YELLING AT HER FAMILY ON THE PHONE CUSSING SECURITY ESCORTS HER TO THE EXIT. PT AMBULATED WITH STEADY GAIT WITH NO S/S OF DISTRESS
== END 2020-08-11 09:14 | disposition home or self-care (01) ==
PROVIDERS: Emergency Provider General Practice; PCP Physician Assistant
DX: R10.30 Lower abdominal pain, unspecified (principal); J45.909 Unspecified asthma, uncomplicated; F31.9 Bipolar disorder, unspecified; Z86.718 Personal history of other venous thrombosis and embolism; K21.9 Gastro-esophageal reflux disease without esophagitis; E87.5 Hyperkalemia; I10 Essential (primary) hypertension; Z86.711 Personal history of pulmonary embolism; F43.10 Post-traumatic stress disorder, unspecified; Z96.652 Presence of left artificial knee joint
CPT/HCPCS: 36415; 51701; 74176; 80053; 81001; 83690; 85025; 96361; 96365; 96375; 99284; J0131; J1885; J2405; J7030

== ENCOUNTER 2020-09-13 00:59 | Outpatient (CLI) | payer MEDICARE, MEDICAID, SELFPAY ==
[2020-09-13 20:27] LABS: SARS-CoV-2 RNA PCR Negative
== END 2020-09-13 01:00 | disposition home or self-care (01) ==
LOC: ANHCOVIDDT 00:59
PROVIDERS: PCP Physician Assistant; Visit Provider Internal Medicine Critical Care Medicine
DX: Z01.812 Encounter for preprocedural laboratory examination (principal); Z20.828 Contact with and (suspected) exposure to other viral communicable diseases
CPT/HCPCS: 87635; C9803; U0003

== ENCOUNTER 2020-09-16 08:23 | Outpatient (CLI) | payer MEDICARE, MEDICAID, SELFPAY ==
--- NOTE | 2020-10-28 10:18 | WPDSLEEPSTUD ---
Sleep Study Date of Study: 09/16/20 Ordering Provider: Favio Mann PA-C Interpreting Physician: Madai Quintanilla MD Sleep Study Type: Polysomnogram Height: 1.75 m Weight: 112.037 kg Body Mass Index: 36.4 Neck Circumference: 38.1 cm [place]: 12 Reason for Sleep Study hypersomnolence Sleep History Iman Vidal is a 35 year-old female with A home sleep test on 07/31/2020 that was performed for hypersomnia. She had an AHI of 3.3 with a minimum saturation of 93%. She has several sleeping issues including chronic insomnia on zolpidem, restless leg syndrome by history with frequent achy and crawling feelings in his her legs at night. This basic study is performed to determine if she has additional issues contributing to poor quality sleep. She has excessive daytime fatigue and sleepiness. This has been going on for several years. She does snore, she constantly has trouble sleeping when she has a cold. She occasionally gasps for breath at night and has breathing problems at night observed by others. She occasionally sweats excessively at night. She frequently notices her heart pounding or beating irregularly at night. She does not fall asleep during the day. She does not fall asleep involuntarily or while driving. She does not fall asleep during physical effort. She occasionally has loss of muscle tone with strong emotion. Occasionally has daytime difficulties due to excessive sleepiness, occasionally feels paralyzed when waking or falling asleep, and occasionally has vivid dreamlike scenes upon awakening or falling asleep. She frequently is afraid to go to sleep, frequently has nightmares, constantly remembers her dreams, and frequently has racing thoughts. She occasionally has feelings of sadness and depression and constantly has anxiety. She frequently has muscular tension, constantly notices parts of her body jerking, and constantly kicks at night. She frequently has crawly, achy feelings in her legs, occasionally has leg pain at night, does not have morning jaw pain. She occasionally grinds her teeth during sleep. She constantly is bothered by pain during the day. She occasionally is awakened by pain at night. She constantly wakes up feeling stiff in the morning with sore achy muscles and pain in the neck and spine. She has panic, insomnia, tremors, poor appetite, headaches, and takes antacids regularly. Normal bedtime is 10 p.m., taking 2 to 3 hours to fall asleep, typically waking 4 to 6 times at night, and staying awake between 15 and 20 minutes, sometimes up to an hour. 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 When she wakes at night, she will often go to the bathroom. If she has had a nightmare, she may stay up. Her normal wake up time is 6 a.m. On the weekends, she may stay awake later between 10 p.m. and midnight and wake at 7 a.m. She estimates somewhere between 2 and 4 hours of sleep each night. She is not getting enough sleep and this prevents her from having social activities. She denies taking naps. A short nap is not refreshing. She is usually drowsy in the morning for 2 hours. She feels better in the afternoon. MEDICAL COMORBIDITIES: Anemia, PTSD, manic depression, asthma, heartburn, diarrhea, and kidney stones. HABITS: Never smoked tobacco. Caffeine, she drinks coffee daily. No alcohol or recreational drugs. [facility] Past Medical History Medical History (Updated 10/28/20 @ 10:46 by Madai Quintanilla MD) Abnormal uterine bleeding Anxiety Arthritis Asthma Bipolar 1 disorder Depression DVT (deep venous thrombosis) Endometriosis Fibroids GERD (gastroesophageal reflux disease) GI bleed HLD (hyperlipidemia) HTN (hypertension) Kidney stones Left ovarian cyst Leg fracture, left Pancreatitis PID (pelvic inflammatory disease) Pneumonia Previous known suicide attempt PTSD (post-traumatic stress disorder) PUD (peptic ulcer disease) Surgical History Surgical History (Reviewed 12
[2020-10-28 10:48] VITALS: BMI 36.4
== END 2020-09-16 08:24 | disposition home or self-care (01) ==
LOC: ANHCSM 08:24
PROVIDERS: PCP Physician Assistant; Visit Provider Physician Assistant
DX: G47.10 Hypersomnia, unspecified (principal); G47.61 Periodic limb movement disorder
CPT/HCPCS: 95810

== ENCOUNTER 2020-09-20 08:29 | Outpatient (NON) | payer MEDICARE, MEDICAID, SELFPAY ==
[2020-09-21 01:03] LABS: SARS-CoV-2 RNA PCR Negative
== END 2020-09-20 08:30 ==
PROVIDERS: PCP Physician Assistant; Visit Provider Physician Assistant
DX: Z20.828 Contact with and (suspected) exposure to other viral communicable diseases (principal)
CPT/HCPCS: 87635; C9803; U0003

== ENCOUNTER 2020-12-15 15:15 | Emergency (ER) | payer MEDICARE, MEDICAID, SELFPAY ==
--- NOTE | ~2020-12-15 | CT_ITS ---
EXAMINATION: CT abdomen pelvis wo con DATE: 12/15/2020 17:01 INDICATION: Abdominal pain TECHNIQUE: Computed tomography (CT) of the abdomen and pelvis was performed without intravenous contr ast. The dose-length product was 1361.13 mGy-cm. Automated exposure control and iterative reconstruct ion technique were employed. COMPARISON: CT dated 08/11/2020 FINDINGS: Lung bases unremarkable. Heart size normal. No significant pleural or pericardial effusion. No significant vascular abnormality. The spleen, pancreas, adrenal glands and right kidney are unremarkable. Stable hyperdense 1.6 cm left renal cyst. No renal stones or hydronephrosis. There are pelvic phleboliths. Bladder is unremarkable . No abnormal pelvic masses or fluid collections. Nonobstructive bowel gas pattern. No acute osseous abnormality. No free air or free fluid. IMPRESSION: 1. No acute abnormality. Reviewed, dictated and finalized at location A. R ASSEMBLER IMPRESSION: 1. No acute abnormality.
[2020-12-15 15:19] VITALS: BP 164/99; PULSE 87; RESP 20; TEMP 36.4; O2SAT 100
--- NOTE | 2020-12-15 15:43 | ED.GENADULT ---
HPI - General Adult General Chief complaint: Abdominal Pain Stated complaint: stomach pain with diarrhea Time Seen by Provider: 12/15/20 15:34 Source: patient History of Present Illness HPI narrative: Patient is a 35 y/o female complaining of right sided upper abdominal pain starting 3 days ago. She describes her pain as sharp and rates it as 7/10. She states that heating pad helps with her pain somewhat. There is no pain radiation. She also has some vomiting and diarrhea. Related Data Home Medications Medication Instructions Recorded Confirmed gabapentin 400 mg capsule 200 mg PO HS cap 10/19/19 12/15/20 hydrocodone 10 mg-acetaminophen 1 tablet PO Q6H PRN 10/19/19 12/15/20 325 mg tablet Allergies Allergy/AdvReac Type Severity Reaction Status Date / Time oxycodone Allergy Intermediate lip Verified 12/15/20 15:22 swelling propoxyphene Allergy Intermediate hives, lip Verified 12/15/20 15:22 swelling Iodinated Contrast Media Allergy Unknown Itching Verified 12/15/20 15:22 latex Allergy Unknown Rash Verified 12/15/20 15:22 Contrast Media AdvReac Mild itching Uncoded 12/15/20 15:22 only Review of Systems Constitutional: Constitutional: Denies chills, Denies fever(s), Denies headache(s) and Denies weakness Eyes: Eyes: Denies blurry vision ENT: Denies headache(s) and Denies neck pain Cardiovascular: Cardiovascular: Denies chest pain and Denies dyspnea Respiratory: Respiratory: Denies cough and Denies dyspnea Gastrointestinal: Gastrointestinal: Reports abdominal pain, Reports diarrhea, Denies nausea and Denies vomiting Genitourinary: Genitourinary: Denies hematuria and Denies dysuria Musculoskeletal: Musculoskeletal: Denies back pain and Denies neck pain Neurologic: Denies headache(s) and Denies weakness [facility] Past Medical History Medical History (Updated 12/15/20 @ 18:05 by Cindy Bhakta MD) Abnormal uterine bleeding Anxiety Arthritis Asthma Bipolar 1 disorder Depression DVT (deep venous thrombosis) Endometriosis Fibroids GERD (gastroesophageal reflux disease) GI bleed HLD (hyperlipidemia) HTN (hypertension) Kidney stones Left ovarian cyst Leg fracture, left Pancreatitis PID (pelvic inflammatory disease) Pneumonia Previous known suicide attempt PTSD (post-traumatic stress disorder) PUD (peptic ulcer disease) Surgical History Surgical History H/O hand surgery H/O ovarian cystectomy Left H/O vascular surgery Left leg vein graft H/O: hysterectomy History of appendectomy History of cholecystectomy History of kidney surgery Ureteral stent History of left knee replacement Hx of tonsillectomy Family History Family History Mother Hypertension Father Hypertension Family history of alcoholism Family history of diabetes mellitus in first degree relative Patient's father is in good health Sibling Family history of diabetes mellitus in first degree relative Social History Social History Smoking status: Never smoker Second hand tobacco smoke exposure: No Alcohol intake: never Gender identity (if verbalized by the patient): Female Exam Const: General: no acute distress and well developed Orientation/consciousness: oriented to person, oriented to place, oriented to time and patient oriented x3 HENMT: Head: normocephalic Ears: external ears normal General nose exam: Normal external nose present Eyes: General: appearance normal, both eyes and all related structures Conjunctivae: conjunctivae normal Neck: Neck: normal visual inspection and full ROM Chest: Chest palpation & inspection: normal inspection of the chest and no tenderness Resp: Effort & Inspection: normal respiratory effort Auscultation: clear to auscultation bilaterally Cardio: Rate: regular rate Rhythm: regular rhythm GI: GI Palp:
[2020-12-15 15:53] LABS: Add Urine Microscopic? YES; Appearance Urine Cloudy (Clear); Bilirubin Urine Negative (Negative); Blood Urine Negative (Negative); Color Urine Yellow (Yellow); Glucose Urine UA Negative (Negative); Ketones Urine Negative (Negative); Leukocyte Esterase Ur Negative LEU/UL (Negative); Nitrate Urine Negative (Negative); Protein Urine Negative (Negative); RBC Urine 0-2 /hpf (0-2); Specific Grav Ur 1.014 (1.001-1.035); Squamous Epithelial Cell Urine Many /hpf (Few); Urobilinogen Urine Negative mg/dL (<2.0); WBC Urine 0-3 /hpf
[2020-12-15 16:33] LABS: Basophils Percent Auto 0.3 % (0.2-1.2); Eosinophils Absolute Auto 0.1 K/mm3 (0-0.3); Eosinophils Percent Auto 1.3 % (0-4.4); Hematocrit 44.7 % (37.0-47.0); Hemoglobin 14.9 g/dL (12.0-15.0); Immature Granulocyte Absolute 0.02 K/mm3 (0.00-0.031); Immature Granulocyte Percent A 0.2 % (0-0.5); Lymphocytes Absolute Auto 2.94 K/mm3 (0.9-3.2); Lymphocytes Percent Auto 31.5 % (18.3-44.2); Mean Corpuscular HGB Conc 33.3 g/dl (32-36); Mean Corpuscular Hemoglobin 32.5 pg (26-34); Mean Corpuscular Volume 97.4 fl (80-100); Mean Platelet Volume 10.1 fl (7.4-10.4); Monocytes Absolute Auto 0.4 K/mm3 (0.1-0.6); Monocytes Percent Auto 4.7 % (2.6-8.5); Neutrophils Absolute Auto 5.8 K/mm3 (1.3-6.7); Platelet Count Result 255 k/mm3 (150-375); Red Blood Count 4.59 M/mm3 (4.2-5.4); Red Cell Distribution Width 12.8 % (11.5-14.5); White Blood Count 9.3 K/mm3 (4.5-10.0)
[2020-12-15 16:44] LABS: Alanine Aminotransferase 52 U/L (4-35); Alkaline Phosphatase 64 U/L (38-126); Anion Gap 2 mmol/L (8-16); Aspartate Amino Transferase 49 U/L (14-36); Bilirubin,Total 0.4 mg/dL (0.2-1.3); Blood Urea Nitrogen 17 mg/dL (7-17); Calcium 8.9 mg/dL (8.4-10.2); Carbon Dioxide 33 mmol/L (22-30); Chloride 105 mmol/L (98-107); Estimated CRCL calculation 125 ml/min; Estimated Glomerular Filt Rate > 60; Glucose 72 mg/dL (65-105); Lipase 276 U/L (23-300); Potassium 4.2 mmol/L (3.4-5.0); Sodium 140 mmol/L (137-145)
[2020-12-15] MEDS: KETOROLAC 30 MG/ML VIAL (*BKC) IV PUSH (17:23)
[2020-12-15 17:48] VITALS: BP 151/76; PULSE 72; O2SAT 100
== END 2020-12-15 18:25 | disposition home or self-care (01) ==
PROVIDERS: Emergency Provider Emergency Medicine; PCP Physician Assistant
DX: R10.11 Right upper quadrant pain (principal); J45.909 Unspecified asthma, uncomplicated; M19.90 Unspecified osteoarthritis, unspecified site; N80.9 Endometriosis, unspecified; K21.9 Gastro-esophageal reflux disease without esophagitis; E78.5 Hyperlipidemia, unspecified; I10 Essential (primary) hypertension; Z86.718 Personal history of other venous thrombosis and embolism; Z87.442 Personal history of urinary calculi; Z87.11 Personal history of peptic ulcer disease
CPT/HCPCS: 36415; 74176; 80053; 81001; 81025; 83690; 85025; 96374; 99284; J1885

== ENCOUNTER 2021-04-17 22:07 | Emergency (ER) | payer MEDICARE, MEDICAID, SELFPAY ==
[2021-04-17 22:44] LABS: Basophils Absolute Auto 0.1 K/mm3 (0.0-0.1); Basophils Percent Auto 0.4 % (0.2-1.2); Eosinophils Absolute Auto 0.2 K/mm3 (0-0.3); Eosinophils Percent Auto 1.3 % (0-4.4); Hematocrit 44.5 % (37.0-47.0); Hemoglobin 14.8 g/dL (12.0-15.0); Immature Granulocyte Absolute 0.04 K/mm3 (0.00-0.031); Immature Granulocyte Percent A 0.4 % (0-0.5); Lymphocytes Absolute Auto 3.68 K/mm3 (0.9-3.2); Lymphocytes Percent Auto 32.9 % (18.3-44.2); Mean Corpuscular HGB Conc 33.3 g/dl (32-36); Mean Corpuscular Hemoglobin 33.5 pg (26-34); Mean Corpuscular Volume 100.7 fl (80-100); Mean Platelet Volume 10.4 fl (7.4-10.4); Monocytes Absolute Auto 0.5 K/mm3 (0.1-0.6); Monocytes Percent Auto 4.7 % (2.6-8.5); Neutrophils Absolute Auto 6.8 K/mm3 (1.3-6.7); Neutrophils Percent Auto 60.3 % (45.5-73.1); Platelet Count Result 247 k/mm3 (150-375); Red Blood Count 4.42 M/mm3 (4.2-5.4); Red Cell Distribution Width 12.3 % (11.5-14.5); White Blood Count 11.2 K/mm3 (4.5-10.0)
[2021-04-17 22:57] LABS: INR 0.9
[2021-04-17 22:59] LABS: Alanine Aminotransferase 24 U/L (4-35); Albumin Level 4.4 g/dL (3.5-5.1); Alkaline Phosphatase 72 U/L (38-126); Anion Gap 11 mmol/L (8-16); Aspartate Amino Transferase 35 U/L (14-36); Bilirubin,Total 0.2 mg/dL (0.2-1.3); Blood Urea Nitrogen 17 mg/dL (7-17); Calcium 9.4 mg/dL (8.4-10.2); Carbon Dioxide 27 mmol/L (22-30); Chloride 103 mmol/L (98-107); Estimated Glomerular Filt Rate > 60; Glucose 86 mg/dL (65-105); Sodium 141 mmol/L (137-145)
[2021-04-17 23:00] LABS: D Dimer 0.67 ug/mL (<0.48)
[2021-04-17 23:03] VITALS: BP 163/109; PULSE 73; RESP 12; TEMP 37.1; O2SAT 96
[2021-04-18 00:28] VITALS: BP 116/65; PULSE 76; RESP 12; TEMP 36.8; O2SAT 98
--- NOTE | 2021-04-18 01:07 | ED.GENADULT ---
HPI - General Adult General Chief complaint: Recheck/Abnormal Lab/Rx Stated complaint: Possible blood clot Time Seen by Provider: 04/18/21 00:39 Source: patient Mode of arrival: ambulatory Limitations: no limitations History of Present Illness HPI narrative: 35-year-old with a history of DVT, hypertension, hyperlipidemia, anxiety disorder here with complaints of pain and swelling to the left calf for past few days. She states that since last 2 days she has been having more pain in the left calf area. She denies any trauma. No history of shortness of breath or chest pain. Patient states she was on Xarelto and she states that she has not been taking it for past 6 months however primary doctor did not call in for prescription and she was tried of calling them repeatedly. Onset (ago): day(s) (2) Location: lower extremity (Left calf) Radiation: non-radiation Severity: moderate Quality: aching Pain Consistency: constant Relieving factors: none Associated symptoms: denies other symptoms Related Data Allergies Allergy/AdvReac Type Severity Reaction Status Date / Time oxycodone Allergy Intermediate lip Verified 01/31/21 11:20 swelling propoxyphene Allergy Intermediate hives, lip Verified 01/31/21 11:20 swelling Iodinated Contrast Media Allergy Unknown Itching Verified 01/31/21 11:20 latex Allergy Unknown Rash Verified 01/31/21 11:20 Contrast Media AdvReac Mild itching Uncoded 01/31/21 11:20 only Review of Systems Review of Systems: All systems reviewed & are unremarkable except as noted in HPI and below Constitutional: Constitutional: Reports no additional constitutional complaints Eyes: Eyes: Reports no additional eye complaints ENT: Reports system reviewed and no additional complaints, except as documented Cardiovascular: Cardiovascular: Reports no additional cardiovascular complaints Respiratory: Respiratory: Reports no additional respiratory complaints Gastrointestinal: Gastrointestinal: Reports no additional gastrointestinal complaints Musculoskeletal: Musculoskeletal: Reports as per HPI Integumentary/Breasts: Skin/Breast: Reports system reviewed and no additional complaints, except as docu PMFSH Past Medical History Medical History Abnormal uterine bleeding Anxiety Arthritis Asthma Bipolar 1 disorder Depression DVT (deep venous thrombosis) Endometriosis Fibroids GERD (gastroesophageal reflux disease) GI bleed HLD (hyperlipidemia) HTN (hypertension) Kidney stones Left ovarian cyst Leg fracture, left Pancreatitis PID (pelvic inflammatory disease) Pneumonia Previous known suicide attempt PTSD (post-traumatic stress disorder) PUD (peptic ulcer disease) Surgical History Surgical History H/O hand surgery H/O ovarian cystectomy Left H/O vascular surgery Left leg vein graft H/O: hysterectomy History of appendectomy History of cholecystectomy History of kidney surgery Ureteral stent History of left knee replacement Hx of tonsillectomy Family History Family History Mother Hypertension Father Hypertension Family history of alcoholism Family history of diabetes mellitus in first degree relative Patient's father is in good health Sibling Family history of diabetes mellitus in first degree relative Social History Social History Smoking status: Never smoker Second hand tobacco smoke exposure: No Alcohol intake: never Gender identity (if verbalized by the patient): Female Exam Narrative: Exam Narrative: GENERAL: Well-appearing, well-nourished, and in no acute distress. HEAD: Normocephalic, atraumatic. EYES: PERRLA and EOMI.. NECK: Supple. CHEST: Clear to auscultation. No respiratory distress. HEART: Regular rate and rhythm. No murmur heard. Normal brii
[2021-04-18] MEDS: ENOXAPARIN 100 MG/ML SYRINGE SUB-Q (01:11)
== END 2021-04-18 01:20 | disposition home or self-care (01) ==
PROVIDERS: Emergency Provider Family Medicine; PCP Physician Assistant
DX: M79.662 Pain in left lower leg (principal); I10 Essential (primary) hypertension; E78.5 Hyperlipidemia, unspecified; J45.909 Unspecified asthma, uncomplicated; M19.90 Unspecified osteoarthritis, unspecified site; K21.9 Gastro-esophageal reflux disease without esophagitis; Z87.442 Personal history of urinary calculi; Z86.718 Personal history of other venous thrombosis and embolism; Z87.11 Personal history of peptic ulcer disease; Z96.652 Presence of left artificial knee joint
CPT/HCPCS: 36415; 80053; 85025; 85380; 85610; 96372; 99283; J1650

== ENCOUNTER 2021-06-04 00:01 | Emergency (ER) | payer MEDICARE, MEDICAID, SELFPAY ==
--- NOTE | ~2021-06-04 | XR_ITS ---
EXAMINATION: XR chest 2V 06/04/2021 01:12 INDICATION: Shortness of breath, cough and congestion PROCEDURE: 2 view chest COMPARISON: Comparison to multiple prior studies sequentially, with oldest reviewed study dated 10/05/2016. FINDINGS: The lungs are clear. The cardiomediastinal silhouette is within normal limits. There are no pleural effusions. There is no pneumothorax suspected. There are cholecystectomy clips. IMPRESSION: 1: NO ACUTE CARDIOPULMONARY DISEASE. Reviewed, dictated and finalized at location A.
[2021-06-04 00:11] VITALS: BP 182/96; PULSE 63; RESP 20; TEMP 36.4; O2SAT 99
--- NOTE | 2021-06-04 00:11 | ECG_ITS ---
Measurements Intervals [place] Rate: 63 P: 19 ME: 146 QRS: 12 QRSD: 108 T: 20 QT: 412 QTc: 422 Interpretive Statements SINUS RHYTHM BASELINE ARTIFACT- I, II, III, AVF, V3-V6 NORMAL ECG Electronically Signed On 06-04-2021 6:21:59 CDT by Petar Hauser D.O.
[2021-06-04 00:47] LABS: Anion Gap 11 mmol/L (8-16); Blood Urea Nitrogen 19 mg/dL (7-17); Calcium 9.7 mg/dL (8.4-10.2); Carbon Dioxide 24 mmol/L (22-30); Chloride 105 mmol/L (98-107); Estimated Glomerular Filt Rate > 60; Glucose 89 mg/dL (65-110); Potassium 3.6 mmol/L (3.4-5.0); Sodium 140 mmol/L (137-145)
[2021-06-04 00:49] LABS: Basophils Percent Auto 0.4 % (0.2-1.2); Eosinophils Absolute Auto 0.2 K/mm3 (0-0.3); Eosinophils Percent Auto 2.3 % (0-4.4); Hematocrit 44.7 % (37.0-47.0); Immature Granulocyte Absolute 0.02 K/mm3 (0.00-0.031); Immature Granulocyte Percent A 0.2 % (0-0.5); Lymphocytes Absolute Auto 3.56 K/mm3 (0.9-3.2); Lymphocytes Percent Auto 43.7 % (18.3-44.2); Mean Corpuscular HGB Conc 33.6 g/dl (32-36); Mean Corpuscular Hemoglobin 32.3 pg (26-34); Mean Corpuscular Volume 96.3 fl (80-100); Monocytes Absolute Auto 0.7 K/mm3 (0.1-0.6); Monocytes Percent Auto 8.5 % (2.6-8.5); Neutrophils Absolute Auto 3.7 K/mm3 (1.3-6.7); Neutrophils Percent Auto 44.9 % (45.5-73.1); Platelet Count Result 281 k/mm3 (150-375); Red Blood Count 4.64 M/mm3 (4.2-5.4); Red Cell Distribution Width 12.3 % (11.5-14.5); White Blood Count 8.2 K/mm3 (4.5-10.0)
[2021-06-04 02:17] VITALS: BP 172/91; PULSE 65; PULSE 82; RESP 18; TEMP 36.6; O2SAT 100
--- NOTE | 2021-06-04 02:37 | ED.SOB ---
HPI - SOB/Dyspnea General Chief Complaint: Shortness of Breath/Dyspnea Stated Complaint: dx w/ pneumonia, feeling worse Time Seen by Provider: 06/04/21 02:18 History of Present Illness HPI Narrative: 35 yo female presents to the ED for pneumonia. She reports that she has had cough, congestion, fever, and body aches for the past week. She was diagnosed with pneumonia over a telehealth visit. She was started on a z0pack and medrol dose pack. She is not feeling any better. She had COVID-19 in January. Related Data Home Medications Medication Instructions Recorded Confirmed hydrochlorothiazide 25 mg tablet 25 mg PO DAILY 05/27/21 lisinopril 40 mg tablet 40 mg PO DAILY 05/27/21 lorazepam 1 mg tablet 1 mg PO TID PRN 05/27/21 sumatriptan succinate 50 mg tablet 50 mg PO ONCE PRN 05/27/21 zolpidem 10 mg tablet 10 mg PO QHS PRN 05/27/21 Allergies Allergy/AdvReac Type Severity Reaction Status Date / Time oxycodone Allergy Intermediate lip Verified 06/04/21 02:26 swelling propoxyphene Allergy Intermediate hives, lip Verified 06/04/21 02:26 swelling Iodinated Contrast Media Allergy Unknown Itching Verified 06/04/21 02:26 latex Allergy Unknown Rash Verified 06/04/21 02:26 Contrast Media AdvReac Mild itching Uncoded 06/04/21 02:26 only Review of Systems Review of Systems: All systems reviewed & are unremarkable except as noted in HPI and below Constitutional: Constitutional: Reports chills, Reports fever(s) and Reports weakness ENT: Reports sore throat Cardiovascular: Cardiovascular: Reports chest pain Respiratory: Respiratory: Reports chest congestion, Reports cough and Reports dyspnea Gastrointestinal: Gastrointestinal: Reports nausea Genitourinary: Genitourinary: Reports no additional female genitourinary complaints Musculoskeletal: Musculoskeletal: Reports back pain and Reports myalgias Neurologic: Reports weakness PMFSH Past Medical History Medical History Abnormal uterine bleeding Anxiety Arthritis Asthma Bipolar 1 disorder Depression DVT (deep venous thrombosis) Endometriosis Fibroids GERD (gastroesophageal reflux disease) GI bleed HLD (hyperlipidemia) HTN (hypertension) Kidney stones Left ovarian cyst Leg fracture, left Pancreatitis PID (pelvic inflammatory disease) Pneumonia Previous known suicide attempt PTSD (post-traumatic stress disorder) PUD (peptic ulcer disease) Surgical History Surgical History H/O hand surgery H/O ovarian cystectomy Left H/O vascular surgery Left leg vein graft H/O: hysterectomy History of appendectomy History of cholecystectomy History of kidney surgery Ureteral stent History of left knee replacement Hx of tonsillectomy Family History Family History Mother Hypertension Father Hypertension Family history of alcoholism Family history of diabetes mellitus in first degree relative Patient's father is in good health Sibling Family history of diabetes mellitus in first degree relative Social History Social History Smoking status: Never smoker Second hand tobacco smoke exposure: No Alcohol intake: never Gender identity (if verbalized by the patient): Female Exam Const: General: healthy appearing, no acute distress and alert Orientation/consciousness: patient oriented x3 HENMT: Head: normal to inspection Neck: Neck: normal visual inspection and no lymphadenopathy Resp: Effort & Inspection: normal respiratory effort Auscultation: crackles Cardio: Rate: regular rate Rhythm: regular rhythm GI: GI Palp: Yes Soft to palpation and No Tenderness to palpation present (GI) Neuro: General: patient oriented x3 and moves all extremities Speech: normal speech Extrem: General: normal to inspection Psy
[2021-06-04 03:00] VITALS: PULSE 59; RESP 15
[2021-06-04] MEDS: ALBUTEROL SULFATE NEB 2.5 MG/0.5 ML INH 5 MG INHALATION (03:02)
[2021-06-04] MEDS: IPRATROPIUM BR 0.02% INH SOLN 0.5 MG/2.5 ML VIAL INHALATION (03:02)
[2021-06-04 03:07] VITALS: PULSE 61; RESP 20
[2021-06-04] MEDS: KETOROLAC (*BKC) 60 MG/2 ML VIAL IM (03:10)
[2021-06-04 04:00] VITALS: BP 148/90; PULSE 69; RESP 15; O2SAT 99
[2021-06-04 05:03] VITALS: BP 113/84; PULSE 68; RESP 20; O2SAT 97
== END 2021-06-04 05:05 | disposition home or self-care (01) ==
PROVIDERS: Emergency Provider Emergency Medicine; PCP Physician Assistant
DX: J45.909 Unspecified asthma, uncomplicated (principal); Z86.16 Personal history of COVID-19; K21.9 Gastro-esophageal reflux disease without esophagitis; I10 Essential (primary) hypertension; E78.5 Hyperlipidemia, unspecified; F41.9 Anxiety disorder, unspecified; F43.10 Post-traumatic stress disorder, unspecified; F31.9 Bipolar disorder, unspecified; M19.90 Unspecified osteoarthritis, unspecified site; Z86.718 Personal history of other venous thrombosis and embolism; Z87.442 Personal history of urinary calculi; Z87.11 Personal history of peptic ulcer disease; Z87.01 Personal history of pneumonia (recurrent); Z96.652 Presence of left artificial knee joint
CPT/HCPCS: 36415; 71046; 80048; 85025; 93005; 94640; 96372; 99284; J1885

== ENCOUNTER 2021-07-17 05:46 | Emergency (ER) | payer MEDICARE, MEDICAID, SELFPAY ==
--- NOTE | ~2021-07-17 | XR_ITS ---
EXAMINATION: XR chest 1V portable DATE: 07/17/2021 06:14 INDICATION: Shortness of breath. TECHNIQUE: A single frontal view of the chest was obtained. COMPARISON: Chest 2 views 06/04/2021, CT abdomen and pelvis 12/15/2020 FINDINGS: The patient is rotated to her left. There is no pneumonia, pleural effusion, or pneumothora x. The heart size is normal. IMPRESSION: 1. No acute cardiopulmonary disease. Reviewed, dictated and finalized at location A.
[2021-07-17 05:46] VITALS: BP 181/100; PULSE 63; RESP 16; TEMP 37; O2SAT 100
--- NOTE | 2021-07-17 06:33 | ED.GENADULT ---
HPI - General Adult General Chief complaint: Upper Respiratory Infection Stated complaint: covid exposure/flu like sx Time Seen by Provider: 07/17/21 06:04 History of Present Illness HPI narrative: Patient presents with diffuse body aches nausea vomiting shortness of breath and cough. Reports symptoms present for the past few days. Reports her children have tested positive for Covid and has been evaluated at [facility]. Reports her symptoms are getting progressively worse over the past couple days is concerned she has Covid so came to the ER for evaluation. As her body is achy the pain is constant, everything makes her symptoms worse. Related Data Home Medications Medication Instructions Recorded Confirmed hydrochlorothiazide 25 mg tablet 25 mg PO DAILY 05/27/21 lisinopril 40 mg tablet 40 mg PO DAILY 05/27/21 lorazepam 1 mg tablet 1 mg PO TID PRN 05/27/21 sumatriptan succinate 50 mg tablet 50 mg PO ONCE PRN 05/27/21 zolpidem 10 mg tablet 10 mg PO QHS PRN 05/27/21 Allergies Allergy/AdvReac Type Severity Reaction Status Date / Time oxycodone Allergy Intermediate lip Verified 06/04/21 02:26 swelling propoxyphene Allergy Intermediate hives, lip Verified 06/04/21 02:26 swelling Iodinated Contrast Media Allergy Unknown Itching Verified 06/04/21 02:26 latex Allergy Unknown Rash Verified 06/04/21 02:26 Contrast Media AdvReac Mild itching Uncoded 06/04/21 02:26 only Review of Systems Review of Systems: CONSTITUTIONAL: Denies fever, chills, or sweats. EYES: Denies visual changes, redness, or discharge. ENT: Patient/congestion runny nose CARDIOVASCULAR: Deniespalpitations, or edema. RESPIRATORY: Patient reports cough and shortness of breath GASTROINTESTINAL: Patient reports abdominal pain nausea and vomiting GENITOURINARY: Denies dysuria or hematuria. SKIN: Denies rash or itching. MUSCULOSKELETAL: Denies back pain, joint pain. Patient does report diffuse myalgias NEUROLOGIC: Denies headache, numbness, dizziness, or weakness. PSYCHIATRIC: Denies anxiety or depression. All systems reviewed & are unremarkable except as noted in HPI and below PMFSH Past Medical History Medical History Abnormal uterine bleeding Anxiety Arthritis Asthma Bipolar 1 disorder Depression DVT (deep venous thrombosis) Endometriosis Fibroids GERD (gastroesophageal reflux disease) GI bleed HLD (hyperlipidemia) HTN (hypertension) Kidney stones Left ovarian cyst Leg fracture, left Pancreatitis PID (pelvic inflammatory disease) Pneumonia Previous known suicide attempt PTSD (post-traumatic stress disorder) PUD (peptic ulcer disease) Surgical History Surgical History H/O hand surgery H/O ovarian cystectomy Left H/O vascular surgery Left leg vein graft H/O: hysterectomy History of appendectomy History of cholecystectomy History of kidney surgery Ureteral stent History of left knee replacement Hx of tonsillectomy Family History Family History Mother Hypertension Father Hypertension Family history of alcoholism Family history of diabetes mellitus in first degree relative Patient's father is in good health Sibling Family history of diabetes mellitus in first degree relative Social History Social History Smoking status: Never smoker Second hand tobacco smoke exposure: No Alcohol intake: never Gender identity (if verbalized by the patient): Female Exam Narrative: GENERAL: Well-appearing, well-nourished, and in no acute distress. HEAD: Normocephalic, atraumatic. EYES: PERRLA and EOMI. ENT: Nares clear, no rhinorrhea or epistaxis. Mucous membranes moist. NECK: Supple. No masses. No JVD CHEST: Clear to auscultation. No respiratory distress. No wheezes rales or rhonchi HEART: Regu
[2021-07-17] MEDS: SODIUM CHLORIDE 0.9% IV 1,000 ML 999 ML IV CONT (06:36)
[2021-07-17 06:47] LABS: Basophils Absolute Auto 0.1 K/mm3 (0.0-0.1); Basophils Percent Auto 0.4 % (0.2-1.2); Eosinophils Absolute Auto 0.3 K/mm3 (0-0.3); Hematocrit 41.3 % (37.0-47.0); Immature Granulocyte Absolute 0.07 K/mm3 (0.00-0.031); Immature Granulocyte Percent A 0.5 % (0-0.5); Lymphocytes Absolute Auto 3.95 K/mm3 (0.9-3.2); Lymphocytes Percent Auto 25.7 % (18.3-44.2); Mean Corpuscular HGB Conc 33.9 g/dl (32-36); Mean Corpuscular Hemoglobin 32.3 pg (26-34); Mean Corpuscular Volume 95.2 fl (80-100); Mean Platelet Volume 9.9 fl (7.4-10.4); Monocytes Percent Auto 6.3 % (2.6-8.5); Neutrophils Percent Auto 65.1 % (45.5-73.1); Platelet Count Result 322 k/mm3 (150-375); Red Blood Count 4.34 M/mm3 (4.2-5.4); Red Cell Distribution Width 12.2 % (11.5-14.5); White Blood Count 15.4 K/mm3 (4.5-10.0)
[2021-07-17 07:05] LABS: EDCOVIDSCREEN Negative (Negative)
[2021-07-17 07:13] LABS: Alanine Aminotransferase 22 U/L (4-35); Albumin Level 4.1 g/dL (3.5-5.1); Alkaline Phosphatase 115 U/L (38-126); Anion Gap 5 mmol/L (8-16); Aspartate Amino Transferase 30 U/L (14-36); Bilirubin,Total 0.5 mg/dL (0.2-1.3); Blood Urea Nitrogen 12 mg/dL (7-17); Calcium 9.5 mg/dL (8.4-10.2); Carbon Dioxide 27 mmol/L (22-30); Chloride 106 mmol/L (98-107); Estimated CRCL calculation 137 ml/min; Estimated Glomerular Filt Rate > 60; Glucose 99 mg/dL (65-110); Sodium 138 mmol/L (137-145)
[2021-07-17] MEDS: ONDANSETRON INJ 4 MG/2 ML VIAL IV PUSH (07:37)
[2021-07-17] MEDS: KETOROLAC 15 MG/ML VIAL (*BKC) IV PUSH (07:38)
[2021-07-17 08:33] LABS: Lipase 194 U/L (23-300)
[2021-07-17 08:47] VITALS: BP 139/74; PULSE 93; TEMP 36.6; O2SAT 98
== END 2021-07-17 09:22 | disposition home or self-care (01) ==
PROVIDERS: Emergency Provider Emergency Medicine; PCP Physician Assistant
DX: B34.9 Viral infection, unspecified (principal); R05 Cough; R11.2 Nausea with vomiting, unspecified; D72.829 Elevated white blood cell count, unspecified; Z20.822 Contact with and (suspected) exposure to COVID-19; E78.5 Hyperlipidemia, unspecified; I10 Essential (primary) hypertension; J45.909 Unspecified asthma, uncomplicated; K21.9 Gastro-esophageal reflux disease without esophagitis; M19.90 Unspecified osteoarthritis, unspecified site; F43.10 Post-traumatic stress disorder, unspecified; F41.9 Anxiety disorder, unspecified; F31.9 Bipolar disorder, unspecified; N80.9 Endometriosis, unspecified; Z86.718 Personal history of other venous thrombosis and embolism; Z96.652 Presence of left artificial knee joint; Z87.442 Personal history of urinary calculi; Z87.01 Personal history of pneumonia (recurrent); Z87.11 Personal history of peptic ulcer disease
CPT/HCPCS: 36415; 71045; 80053; 83690; 85025; 87426; 96361; 96365; 96375; 99284; C9803; J0131; J1885; J2405; J7030

== ENCOUNTER → 2021-07-23 03:19 | Outpatient (CLI) | payer MEDICARE, MEDICAID, SELFPAY ==
[2021-07-23 22:41] LABS: SARS-CoV-2 RNA PCR Negative
== END ==
PROVIDERS: PCP Physician Assistant; Visit Provider Internal Medicine
DX: R68.89 Other general symptoms and signs (principal); Z20.822 Contact with and (suspected) exposure to COVID-19
CPT/HCPCS: C9803; U0003; U0005

== ENCOUNTER 2021-08-01 12:03 | Outpatient (CLI) | payer MEDICARE, MEDICAID, SELFPAY ==
[2021-08-01 12:39] LABS: Basophils Absolute Auto 0.1 K/mm3 (0.0-0.1); Basophils Percent Auto 0.5 % (0.2-1.2); Eosinophils Absolute Auto 0.2 K/mm3 (0-0.3); Eosinophils Percent Auto 1.7 % (0-4.4); Hematocrit 41.1 % (37.0-47.0); Hemoglobin 13.6 g/dL (12.0-15.0); Immature Granulocyte Absolute 0.03 K/mm3 (0.00-0.031); Immature Granulocyte Percent A 0.2 % (0-0.5); Lymphocytes Absolute Auto 3.01 K/mm3 (0.9-3.2); Mean Corpuscular HGB Conc 33.1 g/dl (32-36); Mean Corpuscular Hemoglobin 32.9 pg (26-34); Mean Corpuscular Volume 99.5 fl (80-100); Monocytes Absolute Auto 0.5 K/mm3 (0.1-0.6); Monocytes Percent Auto 4.3 % (2.6-8.5); Neutrophils Absolute Auto 8.2 K/mm3 (1.3-6.7); Neutrophils Percent Auto 68.3 % (45.5-73.1); Platelet Count Result 365 k/mm3 (150-375); Red Blood Count 4.13 M/mm3 (4.2-5.4); Red Cell Distribution Width 12.7 % (11.5-14.5)
[2021-08-01 12:56] LABS: Alanine Aminotransferase 19 U/L (4-35); Albumin Level 4.5 g/dL (3.5-5.1); Alkaline Phosphatase 64 U/L (38-126); Anion Gap 7 mmol/L (8-16); Aspartate Amino Transferase 23 U/L (14-36); Bilirubin,Total 0.3 mg/dL (0.2-1.3); Blood Urea Nitrogen 17 mg/dL (7-17); Calcium 9.6 mg/dL (8.4-10.2); Carbon Dioxide 31 mmol/L (22-30); Chloride 101 mmol/L (98-107); Estimated Glomerular Filt Rate > 60; Glucose 88 mg/dL (65-110); Potassium 4.1 mmol/L (3.4-5.0); Sodium 139 mmol/L (137-145)
== END 2021-08-01 12:04 | disposition home or self-care (01) ==
PROVIDERS: PCP Physician Assistant; Visit Provider Internal Medicine
DX: D72.829 Elevated white blood cell count, unspecified (principal); E87.6 Hypokalemia
CPT/HCPCS: 36415; 80053; 85025

== ENCOUNTER 2021-08-04 08:17 | Outpatient (CLI) | payer MEDICARE, MEDICAID, SELFPAY ==
[2021-08-07 19:40] LABS: Creatinine, Random Urine 61 mg/dL (20-275); Total Protein/Creatinine Ratio 131 mg/g creat (21-161)
[2021-08-08 03:26] LABS: Albumin 3.9 g/dL (3.8-4.8); Alpha 1 Globulin 0.3 g/dL (0.2-0.3); Alpha 2 Globulin 0.9 g/dL (0.5-0.9); Beta 1 Globulin 0.5 g/dL (0.4-0.6); Gamma Globulin 2.1 g/dL (0.8-1.7); Protein, Total 8.5 g/dL (6.1-8.1)
== END 2021-08-04 08:18 | disposition home or self-care (01) ==
LOC: ANHLAB 08:26
PROVIDERS: PCP Physician Assistant; Visit Provider Physician Assistant
DX: R77.8 Other specified abnormalities of plasma proteins (principal)
CPT/HCPCS: 36415; 82570; 84155; 84156; 84165; 84166

== ENCOUNTER 2021-09-09 10:43 | Outpatient (CLI) | payer MEDICARE, MEDICAID, SELFPAY ==
[2021-09-12 12:29] LABS: Immunoglobulin A 601 mg/dL (47-310); Immunoglobulin G 2056 mg/dL (600-1640); Immunoglobulin M 80 mg/dL (50-300)
== END 2021-09-09 10:44 | disposition home or self-care (01) ==
LOC: ANHLAB 10:51
PROVIDERS: PCP Physician Assistant; Visit Provider Physician Assistant
DX: R77.8 Other specified abnormalities of plasma proteins (principal)
CPT/HCPCS: 36415; 82784

== ENCOUNTER 2021-10-08 11:17 | Outpatient (CLI) | payer MEDICARE, MEDICAID, SELFPAY ==
[2021-10-08 11:49] LABS: Basophils Percent Auto 0.3 % (0.2-1.2); Eosinophils Absolute Auto 0.3 K/mm3 (0-0.3); Eosinophils Percent Auto 2.9 % (0-4.4); Hemoglobin 14.5 g/dL (12.0-15.0); Immature Granulocyte Absolute 0.03 K/mm3 (0.00-0.031); Immature Granulocyte Percent A 0.3 % (0-0.5); Lymphocytes Absolute Auto 2.21 K/mm3 (0.9-3.2); Lymphocytes Percent Auto 19.1 % (18.3-44.2); Mean Corpuscular HGB Conc 33.7 g/dl (32-36); Mean Corpuscular Hemoglobin 32.5 pg (26-34); Mean Corpuscular Volume 96.4 fl (80-100); Mean Platelet Volume 10.6 fl (7.4-10.4); Monocytes Absolute Auto 0.6 K/mm3 (0.1-0.6); Monocytes Percent Auto 5.1 % (2.6-8.5); Neutrophils Absolute Auto 8.4 K/mm3 (1.3-6.7); Neutrophils Percent Auto 72.3 % (45.5-73.1); Platelet Count Result 260 k/mm3 (150-375); Red Blood Count 4.46 M/mm3 (4.2-5.4); Red Cell Distribution Width 12.4 % (11.5-14.5); White Blood Count 11.6 K/mm3 (4.5-10.0)
[2021-10-08 13:43] LABS: Alanine Aminotransferase 20 U/L (4-35); Albumin Level 4.6 g/dL (3.5-5.1); Alkaline Phosphatase 54 U/L (38-126); Anion Gap 9 mmol/L (8-16); Aspartate Amino Transferase 29 U/L (14-36); Bilirubin,Total 0.4 mg/dL (0.2-1.3); Blood Urea Nitrogen 19 mg/dL (7-17); Calcium 9.3 mg/dL (8.4-10.2); Carbon Dioxide 25 mmol/L (22-30); Chloride 103 mmol/L (98-107); Estimated Glomerular Filt Rate > 60; Glucose 78 mg/dL (65-110); Potassium 3.8 mmol/L (3.4-5.0); Sodium 137 mmol/L (137-145)
[2021-10-08 13:53] LABS: Immunoglobulin A 541 mg/dL (70-400); Immunoglobulin G 1669 mg/dL (700-1600); Immunoglobulin M 73 mg/dL (40-230)
[2021-10-10 16:30] LABS: Kappa\\Lambda Light Chains 1.49 (0.26-1.65); Lambda Light Chain 31.9 mg/L (5.7-26.3)
[2021-10-11 04:34] LABS: Alpha 1 Globulin 0.4 g/dL (0.2-0.3); Alpha 2 Globulin 0.8 g/dL (0.5-0.9); Beta 1 Globulin 0.4 g/dL (0.4-0.6); Gamma Globulin 1.7 g/dL (0.8-1.7); Protein, Total 7.9 g/dL (6.1-8.1)
== END 2021-10-08 11:18 | disposition home or self-care (01) ==
LOC: ANHLAB 11:20
PROVIDERS: PCP Physician Assistant; Visit Provider Internal Medicine Hematology & Oncology
DX: D72.9 Disorder of white blood cells, unspecified (principal)
CPT/HCPCS: 36415; 80053; 82784; 83883; 84155; 84165; 85025

== ENCOUNTER 2021-11-21 18:07 | Emergency (ER) | payer MEDICARE, MEDICAID, SELFPAY ==
--- NOTE | ~2021-11-21 | CT_ITS ---
EXAMINATION: CTA chest PE protocol DATE: 11/21/2021 22:31 INDICATION: Chest pain and shortness of breath TECHNIQUE: Computed tomography angiography (CTA) of the chest was performed with 100 mL Omnipaque-350 intravenous contrast timed to evaluate the pulmonary arteries. Coronal maximum intensity projection 3D-reconstructions were created by the technologist. The dose-length product (DLP) was 556.27 mGy-cm. Automated exposure control and iterative reconstruction technique were employed. COMPARISON: 03/09/2012 FINDINGS: The pulmonary arteries are well-opacified. No pulmonary embolism is identified. The lungs a re free of acute opacities. There is no pleural effusion or pneumothorax. No pathologically enlarged thoracic lymph nodes are identified. The heart size is normal. A bone island is noted in the the T5 v ertebral body. The gallbladder is surgically absent. IMPRESSION: 1. No pulmonary embolism or acute cardiopulmonary abnormality. Reviewed, dictated and finalized at location F. IVER SETTER
--- NOTE | ~2021-11-21 | XR_ITS ---
EXAMINATION: XR chest 2V DATE: 11/21/2021 18:29 INDICATION: Right-sided chest pain TECHNIQUE: PA and lateral views of the chest are obtained. COMPARISON: 07/17/2021 FINDINGS: The lungs are free of acute opacities. There is no pleural effusion or pneumothorax. The ca rdiomediastinal silhouette is normal. There is mild thoracic spondylosis. IMPRESSION: 1. No acute cardiopulmonary abnormality. Reviewed, dictated and finalized at location F. E TESTER
--- NOTE | 2021-11-21 18:08 | ECG_ITS ---
Measurements Intervals [place] Rate: 70 P: 23 SD: 148 QRS: 5 QRSD: 97 T: 7 QT: 401 QTc: 434 Interpretive Statements SINUS RHYTHM BORDERLINE T WAVE ABNORMALITY- INFERIOR LEADS BASELINE ARTIFACT- I, II, III, AVR, AVL, AVF, V1-V2 BORDERLINE ECG Electronically Signed On 11-21-2021 20:24:45 NON DESTRUCTIVE TESTER by Petar Hauser D.O.
[2021-11-21 18:11] VITALS: BP 187/123; PULSE 78; RESP 18; TEMP 35.8; O2SAT 98
[2021-11-21 18:38] LABS: Basophils Percent Auto 0.3 % (0.2-1.2); Eosinophils Absolute Auto 0.1 K/mm3 (0-0.3); Eosinophils Percent Auto 0.6 % (0-4.4); Hematocrit 44.9 % (37.0-47.0); Hemoglobin 15.3 g/dL (12.0-15.0); Immature Granulocyte Absolute 0.04 K/mm3 (0.00-0.031); Immature Granulocyte Percent A 0.3 % (0-0.5); Lymphocytes Absolute Auto 2.59 K/mm3 (0.9-3.2); Lymphocytes Percent Auto 20.3 % (18.3-44.2); Mean Corpuscular HGB Conc 34.1 g/dl (32-36); Mean Corpuscular Hemoglobin 33.3 pg (26-34); Mean Corpuscular Volume 97.6 fl (80-100); Mean Platelet Volume 10.9 fl (7.4-10.4); Monocytes Absolute Auto 0.7 K/mm3 (0.1-0.6); Monocytes Percent Auto 5.4 % (2.6-8.5); Neutrophils Absolute Auto 9.3 K/mm3 (1.3-6.7); Neutrophils Percent Auto 73.1 % (45.5-73.1); Platelet Count Result 259 k/mm3 (150-375); Red Cell Distribution Width 12.1 % (11.5-14.5); White Blood Count 12.7 K/mm3 (4.5-10.0)
[2021-11-21 18:49] LABS: Alanine Aminotransferase 33 U/L (4-35); Albumin Level 4.9 g/dL (3.5-5.1); Alkaline Phosphatase 67 U/L (38-126); Anion Gap 10 mmol/L (8-16); Aspartate Amino Transferase 38 U/L (14-36); Bilirubin,Total 0.4 mg/dL (0.2-1.3); Blood Urea Nitrogen 13 mg/dL (7-17); Calcium 9.5 mg/dL (8.4-10.2); Carbon Dioxide 29 mmol/L (22-30); Chloride 100 mmol/L (98-107); Estimated CRCL calculation 140 ml/min; Estimated Glomerular Filt Rate > 60; Glucose 104 mg/dL (65-110); Lipase 131 U/L (23-300); Potassium 3.1 mmol/L (3.4-5.0); Prothrombin Time 12.6 Seconds (11.1-14.7); Sodium 139 mmol/L (137-145)
[2021-11-21 18:50] LABS: Partial Thromboplastin Time 27.5 SECONDS (22.3-36.8)
[2021-11-21 18:59] LABS: Troponin I < 0.012 ng/mL (0.000-0.034)
[2021-11-21] MEDS: ASPIRIN 81 MG CHEWABLE TABLET 324 MG PO (20:27)
[2021-11-21 20:30] VITALS: BP 158/89; PULSE 72; RESP 18; O2SAT 100
--- NOTE | 2021-11-21 21:11 | ED.CHESTPAIN ---
HPI - Chest Pain General Chief Complaint: Chest Pain Stated Complaint: chest pain Time Seen by Provider: 11/21/21 20:14 Source: patient and RN notes reviewed Limitations: no limitations History of Present Illness HPI narrative: 36-year-old female presented to emergency room for evaluation of chest pain that started on . Patient does report associated nausea and vomiting. MD complaint: chest pain Related Data Home Medications Medication Instructions Recorded Confirmed sumatriptan succinate 50 mg tablet 50 mg PO ONCE PRN 05/27/21 09/15/21 Allergies Allergy/AdvReac Type Severity Reaction Status Date / Time oxycodone Allergy Intermediate lip Verified 11/21/21 20:33 swelling propoxyphene Allergy Intermediate hives, lip Verified 11/21/21 20:33 swelling Iodinated Contrast Media Allergy Unknown Itching Verified 11/21/21 20:33 latex Allergy Unknown Rash Verified 11/21/21 20:33 Contrast Media AdvReac Mild itching Uncoded 11/21/21 20:33 only Review of Systems Review of Systems: CONSTITUTIONAL: Denies fever, chills, or sweats. EYES: Denies visual changes, redness, or discharge. ENT: Denies rhinorrhea, congestion, sore throat, or otalgia. CARDIOVASCULAR: Chest pain that radiates into the back RESPIRATORY: Denies cough or dyspnea. GASTROINTESTINAL: Does report associated nausea and vomiting GENITOURINARY: Denies dysuria or hematuria. SKIN: Denies rash or itching. MUSCULOSKELETAL: Denies back pain, joint pain, or myalgia. NEUROLOGIC: Denies headache, numbness, or weakness. PSYCHIATRIC: Denies anxiety or depression. [facility] Past Medical History Medical History Abnormal uterine bleeding Anxiety Arthritis Asthma Bipolar 1 disorder Depression DVT (deep venous thrombosis) Endometriosis Fibroids GERD (gastroesophageal reflux disease) GI bleed HLD (hyperlipidemia) HTN (hypertension) Kidney stones Left ovarian cyst Leg fracture, left Pancreatitis PID (pelvic inflammatory disease) Pneumonia Previous known suicide attempt PTSD (post-traumatic stress disorder) PUD (peptic ulcer disease) Surgical History Surgical History H/O hand surgery H/O ovarian cystectomy Left H/O vascular surgery Left leg vein graft H/O: hysterectomy History of appendectomy History of cholecystectomy History of kidney surgery Ureteral stent History of left knee replacement Hx of tonsillectomy Family History Family History Mother Hypertension Father Hypertension Family history of alcoholism Family history of diabetes mellitus in first degree relative Patient's father is in good health Sibling Family history of diabetes mellitus in first degree relative Social History Social History Smoking status: Never smoker Second hand tobacco smoke exposure: No Alcohol intake: never Gender identity (if verbalized by the patient): Female Exam Narrative: APPEARANCE: Well appearing, no pain, no distress, well-nourished. HEAD: normocephalic, atraumatic. EYES: PERRLA/EOMI, conjunctivae clear. NOSE: Normal no drainage THROAT: Pharynx clear, no exudate. NECK: Supple. No adenopathy, no masses. RESPIRATORY: Airway patent, respirations nonlabored. Clear to auscultation bilaterally, no rales, rhonchi, wheezing. CARDIOVASCULAR: Regular rate and rhythm without murmurs rubs or gallops. ABDOMINAL: Soft, nontender, nondistended, normal bowel sounds MUSCULOSKELETAL: Moves all extremities. Strength/ROM intact, No edema, No calf tenderness. NEURO: Alert. Cranial nerves II through XII intact. SKIN: Warm, dry. Normal Color Course Vital Signs Vital signs: Vital Signs Temperature 96.4 F L 11/21/21 18:11 Pulse Rate 78 11/21/21 18:11 Respiratory Rate 18 11/21/21 18:11 Blood Pressure 187/123 H 11/21/21 18:11 Puls
[2021-11-21] MEDS: predniSONE 40 MG, predniSONE 10 MG 50 MG PO (21:32)
[2021-11-21] MEDS: diphenhydrAMINE HCl CAP 25 MG CAPSULE 50 MG PO (21:32)
[2021-11-21 21:34] VITALS: BP 118/68; PULSE 74; RESP 16; O2SAT 98
[2021-11-21 21:43] LABS: Troponin I < 0.012 ng/mL (0.000-0.034)
[2021-11-21 22:32] VITALS: BP 169/99; PULSE 82; RESP 14; O2SAT 100
[2021-11-21] MEDS: KETOROLAC 15 MG/ML VIAL (*BKC) IV PUSH (23:55)
[2021-11-21 23:57] VITALS: BP 136/72; PULSE 68; RESP 15; O2SAT 97
== END 2021-11-21 23:59 | disposition home or self-care (01) ==
PROVIDERS: Emergency Medicine; Emergency Provider Emergency Medicine; PCP Physician Assistant
DX: R07.9 Chest pain, unspecified (principal); M79.601 Pain in right arm; J45.909 Unspecified asthma, uncomplicated; E78.5 Hyperlipidemia, unspecified; I10 Essential (primary) hypertension; M19.90 Unspecified osteoarthritis, unspecified site; K21.9 Gastro-esophageal reflux disease without esophagitis; Z86.718 Personal history of other venous thrombosis and embolism; Z87.442 Personal history of urinary calculi; Z87.01 Personal history of pneumonia (recurrent); Z87.11 Personal history of peptic ulcer disease; Z96.652 Presence of left artificial knee joint; R94.31 Abnormal electrocardiogram [ECG] [EKG]
CPT/HCPCS: 36415; 71046; 71275; 80053; 83690; 84484; 85025; 85610; 85730; 93005; 96374; 99284; A9270; J1885; J7512; Q9967

== ENCOUNTER 2021-11-28 14:28 | Outpatient (CLI) | payer MEDICARE, MEDICAID, SELFPAY ==
--- NOTE | ~2021-11-28 | XR_ITS ---
XR shoulder RT min 2V DATE: 11/28/2021 14:57 INDICATION: Right shoulder pain TECHNIQUE: 4 views COMPARISON: None FINDINGS: No fracture or dislocation, periosteal reaction or bone destruction or abnormal soft tissue calcification. IMPRESSION: No significant abnormality Reviewed, dictated and finalized at location A. CAL MECHANIC APPRENTICE IMPRESSION: No significant abnormality
--- NOTE | ~2021-11-28 | XR_ITS ---
XR cervical spine 4-5V DATE: 11/28/2021 14:57 INDICATION: Neck pain for one month TECHNIQUE: AP, open-mouth, lateral, swimmer views COMPARISON: None FINDINGS: C1 and C2 are normally aligned and the odontoid process is intact. No fracture or dislocati on or locked facet or prevertebral soft tissue swelling. There is minimal loss of height at C4-5 interspace. There is mild uncovertebral joint spurring on the left at C5-6. IMPRESSION: Minimal loss of interspace height at C4-5 Mild uncovertebral joint spurring on the left at C5-6 Reviewed, dictated and finalized at location A. NGEUR OPERATOR
--- NOTE | ~2021-11-28 | XR_ITS ---
XR thoracic spine 3V DATE: 11/28/2021 14:58 INDICATION: Back pain TECHNIQUE: AP, lateral and swimmer views COMPARISON: None FINDINGS: No fracture or dislocation or bone destruction. The thoracic pedicles are intact. There is mild degenerative spurring of the mid and lower thoracic spine. No paraspinal soft tissue th ickening. Surgical clips, right upper quadrant of abdomen, likely due to cholecystectomy. IMPRESSION: Mild degenerative spurring of the mid and lower thoracic spine Reviewed, dictated and finalized at location A. ER MEASURER
== END 2021-11-28 14:29 | disposition home or self-care (01) ==
LOC: ANHIMG 14:33
PROVIDERS: PCP Physician Assistant; Visit Provider Physician Assistant
DX: M54.2 Cervicalgia (principal); M25.511 Pain in right shoulder; M54.9 Dorsalgia, unspecified
CPT/HCPCS: 72050; 72072; 73030

== ENCOUNTER 2021-12-01 11:24 | Emergency (ER) | payer MEDICARE, MEDICAID, SELFPAY ==
--- NOTE | ~2021-12-01 | XR_ITS ---
XR shoulder LT min 2V 12/01/2021 12:50 Indication: Left shoulder pain Procedure: 3 views left shoulder Comparison: 08/06/2013 Findings: No acute fracture, subluxation or dislocation. No significant soft tissue abnormality. No f oreign bodies. Impression: 1: No acute bone or joint abnormality. Reviewed, dictated and finalized at location B. ING AND INSURANCE COORDINATOR Impression: 1: No acute bone or joint abnormality.
[2021-12-01 11:38] VITALS: BP 139/91; PULSE 68; RESP 20; TEMP 36.8; O2SAT 100
[2021-12-01] MEDS: KETOROLAC (*BKC) 60 MG/2 ML VIAL IM (14:12)
[2021-12-01] MEDS: methylPREDNISolone SOD SUCC 125 MG VIAL IM (14:12)
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
== END 2021-12-01 14:28 | disposition home or self-care (01) ==
PROVIDERS: Emergency Provider Emergency Medicine; PCP Physician Assistant
DX: S43.402A Unspecified sprain of left shoulder joint, initial encounter (principal); G89.29 Other chronic pain; E78.5 Hyperlipidemia, unspecified; I10 Essential (primary) hypertension; M19.90 Unspecified osteoarthritis, unspecified site; Z86.718 Personal history of other venous thrombosis and embolism; Z87.442 Personal history of urinary calculi; Z87.01 Personal history of pneumonia (recurrent); Z87.11 Personal history of peptic ulcer disease; Z96.652 Presence of left artificial knee joint; X50.9XXA Other and unspecified overexertion or strenuous movements or postures, initial encounter; Y93.83 Activity, rough housing and horseplay
CPT/HCPCS: 73030; 96372; 99284; A4565; J1885; J2930

== ENCOUNTER 2021-12-03 08:41 | Outpatient (CLI) | payer MEDICARE, MEDICAID, SELFPAY ==
--- NOTE | ~2021-12-03 | NM_ITS ---
EXAMINATION: NM acosta stress w perfusion DATE: 12/03/2021 11:13 INDICATION: Chest pain, unspecified. TECHNIQUE: Rest images were obtained following intravenous administration of 9.9 mCi Tc99m tetrofosmi n (Myoview). The patient was infused intravenously with Lexiscan (regadenoson). Then, 31.2 mCi Tc99m tetrofosmin (Myoview) was administered intravenously, and stress images were obtained. Data was recon structed into short axis and horizontal and vertical long axis SPECT images. Gated SPECT images were also obtained. COMPARISON: Chest CT 11/21/2021 FINDINGS: There is a moderate-sized, mild, fixed perfusion defect involving mid anterior, apical late ral, and mid anterolateral segments of left ventricle, consistent with infarct. No reversible compone nt to suggest ischemia.. There is no segmental wall motion abnormality. Left ventricular ejection f raction measures >70%. IMPRESSION: 1. Moderate-sized area of mild infarct involving mid anterior, apical lateral, and mid anterolateral segments of left ventricle. 2. Normal left ventricular ejection fraction measuring >70%. Reviewed, dictated and finalized at location A. DRAWER
--- NOTE | 2021-12-03 09:07 | EST_ITS ---
Patient Info Name: Iman Vidal Age: 36 years : 1985 Gender: Female Ht: 69 in Wt: 235 lbs BSA: 2.32 m2 HR: 59 bpm BP: 168 / 108 mmHg Heart Rhythm: Sinus Rhythm Exam Date: 12/03/2021 9:59 AM Exam Location: [facility] Stress Patient Status: Outpatient Admit Date: 12/03/2021 Staff Ordering Physician: Favio Mann PA-C Attending Provider: Favio Mann PA-C Exercise Technologist: Lola Davila CT Exercise Physician: Petar Hauser DO Exam Type: CA stress acosta w NM Study Info Indications R06.02 - Shortness of breath R07.9 - Chest pain, unspecified A regadenoson stress test was performed. Summary 1. 1. Abnormal lexiscan stress test for ischemic ST changes by ECG criteria. 2. 2. Baseline hypertension. 3. 3. Nuclear scan to follow and will be reported separately. Please correlate with it. 4. 4. Patient informed of the above results. Protocol: Lexiscan Stress ECG Details Stage: REST Duration (min): 1 min : 56 sec HR (bpm): 56 SBP (mmHg): 168 DBP (mmHg): 108 Stage: REST Duration (min): 10 min : 0 sec HR (bpm): 57 SBP (mmHg): 145 DBP (mmHg): 104 Stage: STAGE 1 Duration (min): 0 min : 59 sec HR (bpm): 123 SBP (mmHg): 154 DBP (mmHg): 102 Stage: RECOVERY Duration (min): 1 min : 0 sec HR (bpm): 112 SBP (mmHg): 154 DBP (mmHg): 102 Stage: RECOVERY Duration (min): 2 min : 0 sec HR (bpm): 108 SBP (mmHg): 154 DBP (mmHg): 102 Stage: RECOVERY Duration (min): 3 min : 0 sec HR (bpm): 104 SBP (mmHg): 151 DBP (mmHg): 100 Stage: RECOVERY Duration (min): 3 min : 22 sec HR (bpm): 97 SBP (mmHg): 151 DBP (mmHg): 100 Rest HR: 57 bpm Peak HR: 128 bpm Rest Sys BP: 145 mmHg Peak Sys BP: 154 mmHg Max Pred HR: 182 bpm % Max Pred HR: 70 % Target HR: 155 bpm Max RPP: 19,712 bpm*mmHg Termination Reason: Completed protocol Cardiac Symptoms: Shortness of breath Total Time: 1 min : 0 sec Rest Bailey BP: 104 mmHg Peak Bailey BP: 102 mmHg Total Dose: 0.4 mg Resting ECG Sinus rhythm. Stress ECG Downsloping ST depression 3 mm in II, III, avF, V2-V6 with HR at 128 bpm and resolved once HR decreased to under 112 bpm. Arrhythmias None. Report Signatures
== END 2021-12-03 08:42 | disposition home or self-care (01) ==
LOC: ANHCARD 08:46
PROVIDERS: PCP Physician Assistant; Visit Provider Physician Assistant
DX: R07.9 Chest pain, unspecified (principal); R06.02 Shortness of breath
CPT/HCPCS: 78452; 93017; A9502; J2785

== ENCOUNTER 2022-01-16 13:20 | Emergency (ER) | payer MEDICARE, MEDICAID, SELFPAY ==
--- NOTE | ~2022-01-16 | XR_ITS ---
EXAMINATION: XR chest 2V DATE: 01/16/2022 14:12 INDICATION: Shortness of breath TECHNIQUE: AP and lateral views of the chest are obtained. COMPARISON: 11/21/2021 FINDINGS: The lungs are free of acute opacities. There is no pleural effusion or pneumothorax. The ca rdiomediastinal silhouette is normal. There is mild thoracic spondylosis. IMPRESSION: 1. No acute cardiopulmonary abnormality. Reviewed, dictated and finalized at location B. NEY CONSTRUCTION SUPERVISOR
[2022-01-16 13:24] VITALS: BP 154/96; PULSE 77; RESP 22; TEMP 36.4; O2SAT 100
--- NOTE | 2022-01-16 13:31 | ECG_ITS ---
Measurements Intervals [place] Rate: 79 P: 23 [place]: 140 QRS: 11 QRSD: 98 T: 31 QT: 392 QTc: 450 Interpretive Statements SINUS RHYTHM BASELINE ARTIFACT NONSPECIFIC T-WAVE ABNORMALITY INFERIORLY COMPARED TO ECG 11/21/2021 18:23:51 NO SIGNIFICANT CHANGES Electronically Signed On 01-16-2022 15:24:01 PANEL FITTER by Sancho Mcmahon M.D.
[2022-01-16 13:50] LABS: Basophils Percent Auto 0.4 % (0.2-1.2); Eosinophils Absolute Auto 0.1 K/mm3 (0-0.3); Eosinophils Percent Auto 0.7 % (0-4.4); Hematocrit 43.7 % (37.0-47.0); Hemoglobin 14.8 g/dL (12.0-15.0); Immature Granulocyte Absolute 0.04 K/mm3 (0.00-0.031); Immature Granulocyte Percent A 0.4 % (0-0.5); Lymphocytes Absolute Auto 2.57 K/mm3 (0.9-3.2); Lymphocytes Percent Auto 22.5 % (18.3-44.2); Mean Corpuscular HGB Conc 33.9 g/dl (32-36); Mean Corpuscular Volume 97.3 fl (80-100); Mean Platelet Volume 10.5 fl (7.4-10.4); Monocytes Absolute Auto 0.5 K/mm3 (0.1-0.6); Monocytes Percent Auto 4.5 % (2.6-8.5); Neutrophils Absolute Auto 8.2 K/mm3 (1.3-6.7); Neutrophils Percent Auto 71.5 % (45.5-73.1); Platelet Count Result 276 k/mm3 (150-375); Red Blood Count 4.49 M/mm3 (4.2-5.4); Red Cell Distribution Width 12.7 % (11.5-14.5); White Blood Count 11.4 K/mm3 (4.5-10.0)
[2022-01-16 14:32] LABS: Alanine Aminotransferase 18 U/L (4-35); Albumin Level 4.4 g/dL (3.5-5.1); Alkaline Phosphatase 71 U/L (38-126); Anion Gap 8 mmol/L (8-16); Aspartate Amino Transferase 26 U/L (14-36); Bilirubin,Total 0.3 mg/dL (0.2-1.3); Blood Urea Nitrogen 13 mg/dL (7-17); Calcium 9.1 mg/dL (8.4-10.2); Carbon Dioxide 24 mmol/L (22-30); Chloride 108 mmol/L (98-107); Estimated Glomerular Filt Rate > 60; Glucose 103 mg/dL (65-110); Potassium 4.3 mmol/L (3.4-5.0); Sodium 140 mmol/L (137-145)
[2022-01-16 15:44] VITALS: BP 150/107; PULSE 75; RESP 20; TEMP 36.8; O2SAT 100
[2022-01-16] MEDS: LORazepam INJ (*CRX) 2 MG/ML VIAL 1 MG IV PUSH (16:09)
--- NOTE | 2022-01-16 16:14 | ED.SOB ---
HPI - SOB/Dyspnea General Chief Complaint: Shortness of Breath/Dyspnea Stated Complaint: SOB Time Seen by Provider: 01/16/22 15:48 History of Present Illness HPI Narrative: 36-year-old female presents the emergency room with gradual onset of shortness of breath and difficulty breathing for 2 days. Denies recent upper respiratory infection. Denies coughing. Patient states that she was seen in her director of nursing 2 days ago for chest pain, and had a treadmill test performed. States EKG at that time and treadmill test were both negative. Patient is awaiting an echo. Patient admits to history of anxiety, she states she has stopped taking her antianxiety medication Related Data Allergies Allergy/AdvReac Type Severity Reaction Status Date / Time oxycodone Allergy Intermediate lip Verified 01/14/22 11:31 swelling propoxyphene Allergy Intermediate hives, lip Verified 01/14/22 11:31 swelling Iodinated Contrast Media Allergy Unknown Itching Verified 01/14/22 11:31 latex Allergy Unknown Rash Verified 01/14/22 11:31 Contrast Media AdvReac Mild itching Uncoded 01/14/22 11:31 only Review of Systems Review of Systems: CONSTITUTIONAL: Denies fever, chills, or sweats. EYES: Denies visual changes, redness, or discharge. ENT: Denies rhinorrhea, congestion, sore throat, or otalgia. CARDIOVASCULAR: Reports chest pain, palpitations.. RESPIRATORY: Reports shortness of breath. GASTROINTESTINAL: Denies abdominal pain, nausea, vomiting, or diarrhea. GENITOURINARY: Denies dysuria or hematuria. SKIN: Denies rash or itching. MUSCULOSKELETAL: Denies back pain, joint pain, or myalgia. NEUROLOGIC: Denies headache, numbness, dizziness, or weakness. PSYCHIATRIC: Denies anxiety or depression. [facility] Past Medical History Medical History Abnormal uterine bleeding Anxiety Arthritis Asthma Bipolar 1 disorder Depression DVT (deep venous thrombosis) Endometriosis Fibroids GERD (gastroesophageal reflux disease) GI bleed HLD (hyperlipidemia) HTN (hypertension) Kidney stones Left ovarian cyst Leg fracture, left Pancreatitis PID (pelvic inflammatory disease) Pneumonia Previous known suicide attempt PTSD (post-traumatic stress disorder) PUD (peptic ulcer disease) Surgical History Surgical History H/O hand surgery H/O ovarian cystectomy Left H/O vascular surgery Left leg vein graft H/O: hysterectomy History of appendectomy History of cholecystectomy History of kidney surgery Ureteral stent History of left knee replacement Hx of tonsillectomy Family History Family History Mother Hypertension Father Hypertension Family history of alcoholism Family history of diabetes mellitus in first degree relative Patient's father is in good health Sibling Family history of diabetes mellitus in first degree relative Social History Social History Smoking status: Never smoker Second hand tobacco smoke exposure: No Alcohol intake: never Gender identity (if verbalized by the patient): Female Exam Narrative: GENERAL: Well-appearing, well-nourished, and in no acute distress. HEAD: Normocephalic, atraumatic. EYES: PERRLA and EOMI. ENT: Nares clear, no rhinorrhea or epistaxis. Mucous membranes moist. NECK: Supple. No adenopathy or masses. No carotid bruits or JVD CHEST: Clear to auscultation. No respiratory distress. No wheezes rales or rhonchi HEART: Regular rate and rhythm. No murmur heard. Normal peripheral pulses. ABDOMEN: Soft, nontender, nondistended, normal active bowel sounds. EXTREMITIES: Normal range of motion. No edema. SKIN: Warm, dry, no rash. NEURO: No focal deficits. Alert and oriented x3. PSYCH: Anxious. Course Vital Signs Vital signs: Vital Signs Temperature 36.4 C 01/16/22 13:24
[2022-01-16 16:54] VITALS: BP 149/92; PULSE 63; RESP 16; TEMP 36.6; O2SAT 97
[2022-01-16 17:00] LABS: D Dimer 0.36 ug/mL (<0.48)
[2022-01-16 17:07] LABS: Troponin I < 0.012 ng/mL (0.000-0.034)
[2022-01-16] MEDS: KETOROLAC 30 MG/ML VIAL (*BKC) IV PUSH (17:12)
--- NOTE | 2022-01-16 17:15 | PC.NURSE ---
toradol given for back pain
[2022-01-16 18:08] VITALS: BP 148/99; PULSE 82; RESP 12; TEMP 36.4; O2SAT 96
== END 2022-01-16 18:10 | disposition home or self-care (01) ==
PROVIDERS: Emergency Medicine; Emergency Provider Nurse Practitioner Family; PCP Physician Assistant
DX: R09.1 Pleurisy (principal); F41.9 Anxiety disorder, unspecified; J45.909 Unspecified asthma, uncomplicated; E78.5 Hyperlipidemia, unspecified; I10 Essential (primary) hypertension; K21.9 Gastro-esophageal reflux disease without esophagitis; M19.90 Unspecified osteoarthritis, unspecified site; Z86.718 Personal history of other venous thrombosis and embolism; F43.10 Post-traumatic stress disorder, unspecified; Z87.442 Personal history of urinary calculi; Z87.01 Personal history of pneumonia (recurrent); Z86.711 Personal history of pulmonary embolism; Z96.652 Presence of left artificial knee joint; R94.31 Abnormal electrocardiogram [ECG] [EKG]
CPT/HCPCS: 36415; 71046; 80053; 84484; 85025; 85380; 93005; 96374; 96375; 99284; J1885; J2060

== ENCOUNTER 2022-02-12 09:24 | Outpatient (CLI) | payer MEDICARE, MEDICAID, SELFPAY ==
[2022-02-12 09:51] LABS: Anion Gap 4 mmol/L (8-16); Blood Urea Nitrogen 17 mg/dL (7-17); Calcium 8.6 mg/dL (8.4-10.2); Carbon Dioxide 30 mmol/L (22-30); Chloride 105 mmol/L (98-107); Estimated Glomerular Filt Rate > 60; Glucose 114 mg/dL (65-110); Potassium 3.8 mmol/L (3.4-5.0); Sodium 139 mmol/L (137-145)
[2022-02-12 09:53] LABS: Cholesterol 168 mg/dL (0-200); HDL Direct 41 mg/dL; Triglycerides 105 mg/dL (<150)
[2022-02-12 10:04] LABS: LDL Cholesterol Direct 94 mg/dL
== END 2022-02-12 09:25 | disposition home or self-care (01) ==
PROVIDERS: PCP Physician Assistant; Visit Provider Internal Medicine Cardiovascular Disease
DX: E87.6 Hypokalemia (principal); I21.9 Acute myocardial infarction, unspecified; Z68.36 Body mass index [BMI] 36.0-36.9, adult
CPT/HCPCS: 36415; 80048; 80061

== ENCOUNTER 2022-06-08 08:46 | Outpatient (CLI) | payer MEDICARE, MEDICAID, SELFPAY ==
--- NOTE | 2022-06-08 09:03 | ECHO_ITS ---
Patient Info Name: Iman Vidal Age: 36 years : 1985 Gender: Female Ht: 69 in Wt: 219 lbs BSA: 2.23 m2 HR: 54 bpm BP: 135 / 84 mmHg Technical Quality: Good Exam Date: 06/08/2022 9:32 AM Exam Location: [facility] Patient Status: Outpatient Admit Date: 06/08/2022 Staff Ordering Physician: Petar Hauser DO [employer] Sales Manager: Juju Maria RDCS Attending Provider: Petar Hauser DO Referring Physician: Murtaza DE LEON; Exam Type: CA echo doppler color flow Study Info Indications R06.00 - Dyspnea, unspecified Complete two-dimensional, color flow and Doppler transthoracic echocardiogram is performed. Summary 1. Complete two-dimensional, color flow and Doppler transthoracic echocardiogram is performed. 2. Left ventricular chamber dimension is normal. 3. Left ventricular systolic function is normal, estimated at 60-65%. 4. The left ventricular diastolic function is normal. 5. E/e' 9 is minimally elevated. 6. There is trace mitral valve regurgitation. 7. No pulmonary hypertension, estimated pulmonary arterial systolic pressure is 23 mmHg. Left Ventricle E/e' 9 is minimally elevated. Left ventricular chamber dimension is normal. Left ventricular systolic function is normal, estimated at 60-65%. The left ventricular diastolic function is normal. Right Ventricle Right ventricular chamber dimension is normal. Right ventricular systolic function is normal. Left Atria Left atrial chamber dimension is normal. Right Atria Right atrial chamber dimension is normal. Aortic Valve The aortic valve is trileaflet. There is no aortic valve stenosis. There is no aortic valve regurgitation. Pulmonic Valve There is no pulmonic regurgitation. Mitral Valve There is no mitral valve stenosis. There is trace mitral valve regurgitation. Tricuspid Valve There is no tricuspid valve regurgitation. No pulmonary hypertension, estimated pulmonary arterial systolic pressure is 23 mmHg. Pericardium/Pleural There is no pericardial effusion. Inferior Vena Cava Normal inferior vena cava with >50% collapse upon inspiration consistent with normal right atrial pressure, 5 mmHg. Aorta The aortic root size at the sinus of Valsalva is normal. Left Ventricular Outflow Tract Name Value Normal LVOT 2D LVOT Diameter 2.0 cm LVOT Doppler LVOT Peak Gradient 6 mmHg LVOT Mean Gradient 4 mmHg LVOT VTI 29 cm LVOT VTI/AV VTI Ratio 0.9 LVOT Stroke Volume 93 ml LVOT CO 17.3 l/min LVOT CI 7.7 l/min/m2 Pulmonic Valve Name Value Normal PV Doppler PV Peak Gradient 5 mmHg Mitral Valve
== END 2022-06-08 08:47 | disposition home or self-care (01) ==
LOC: ANHCARD 08:48
PROVIDERS: PCP Physician Assistant; Visit Provider Internal Medicine Cardiovascular Disease
DX: R06.00 Dyspnea, unspecified (principal)
CPT/HCPCS: 93306

== ENCOUNTER 2022-07-28 15:53 | Observation (INO) | payer MEDICARE, MEDICAID, SELFPAY ==
[2022-07-28] VITALS (16 sets, daily range): BP systolic 138–165; BP diastolic 80–102; PULSE 50–67; RESP 16–20; TEMP 36.4–36.6; O2SAT 96–100; BMI 34.9; BMI 34.7
--- NOTE | ~2022-07-28 | US_ITS ---
EXAMINATION:US venous doppler LE LT INDICATION:Left leg swelling and pain TECHNIQUE: Multiple grayscale, color flow and Doppler images of the left lower extremity deep venous systems were obtained and reviewed. COMPARISON:09/15/2017 FINDINGS: The common femoral, superficial femoral and popliteal veins demonstrate normal respiratory variation, augmentation and compressibility. Color flow is also seen within the posterior tibial, pe roneal, greater saphenous and profunda veins. IMPRESSION: 1: No lower extremity deep venous thrombosis. Reviewed, dictated and finalized at location A.
--- NOTE | ~2022-07-28 | XR_ITS ---
XR tibia fibula LT 2V DATE: 07/28/2022 17:38 INDICATION: Left ankle pain and swelling. Left lower extremity pain, edema. TECHNIQUE: AP and lateral views COMPARISON: 07/28/2022 views duplex examination of the left lower extremity 07/28/2022 left ankle FINDINGS: Status post left knee arthroplasty. No fracture or dislocation of the tibia or fibula is detected. There is a small dimple or depression in the anterior soft tissues anterior to the mid shaft of the t ibia with subjacent slight focal anterior tibial cortical thickening. These findings may be due to ol d soft tissue and bony injury. If there is concern for an active process, consider MR examination or radionuclide bone scan. No active periosteal reaction or bone destruction is radiographically evident . IMPRESSION: Small soft tissue depression of the mid to lower aspect of the anterior lower leg with un derlying slight focal anterior tibial cortical thickening. Findings are likely chronic, but if there is concern for an active process, consider MR examination or bone scan. Status post left total knee arthroplasty Reviewed, dictated and finalized at location B. IMPRESSION: Small soft tissue depression of the mid to lower aspect of the ante rior lower leg with underlying slight focal anterior tibial cortical thickening . Findings are likely chronic, but if there is concern for an active process, c onsider MR examination or bone scan. Status post left total knee arthroplasty
--- NOTE | ~2022-07-28 | XR_ITS ---
EXAMINATION: XR chest 2V Exam Date/Time: 07/28/2022 17:30 CDT HISTORY: lower extremity edema Comparison: 01/16/2022. RESULT: Lines, tubes, and devices: Cholecystectomy clips. Lungs and pleura: Clear. Cardiomediastinal silhouette: Stable. Other: No acute osseous or upper abdominal finding. IMPRESSION: No acute cardiopulmonary process. Reviewed, dictated and finalized at location K.
--- NOTE | ~2022-07-28 | XR_ITS ---
XR ankle LT min 3V DATE: 07/28/2022 17:38 INDICATION: Left ankle pain and swelling TECHNIQUE: 4 views COMPARISON: 07/28/2022 left tibia and fibula FINDINGS: There is a small depression or dimple along the anterior soft tissues of the mid and lower leg. Beneath this is slight focal cortical thickening of the anterior cortex of the tibia. These find ings are likely chronic. No periosteal reaction or active bone destruction is noted. If there is clin ical concern for active disease at this region, consider MR or bone scan. Otherwise no fracture or dislocation of the ankle or disruption of the ankle mortise. Prominent posterior and moderate plantar calcaneal enthesopathy, without erosive change or periostiti s. There is generalized soft tissue swelling of the lower leg and ankle. IMPRESSION: Generalized lower leg and ankle soft tissue swelling Small dimple of the anterior aspect of the soft tissues of the mid and lower leg with slight focal un derlying cortical thickening of the anterior tibial cortex. These findings are likely benign and generalist vinay. If there is clinical concern in this region, consider MR examination or bone scan Reviewed, dictated and finalized at location B. IMPRESSION: Generalized lower leg and ankle soft tissue swelling Small dimple of the anterior aspect of the soft tissues of the mid and lower le g with slight focal underlying cortical thickening of the anterior tibial joleen x. These findings are likely benign and chronic. If there is clinical concern i n this region, consider MR examination or bone scan
--- NOTE | 2022-07-28 16:03 | PC.NURSE ---
1603-CALLED PATIENT FOR TRIAGE. PATIENT ALREADY TAKEN FOR VENOUS DOPPLER STUDY.
--- NOTE | 2022-07-28 17:21 | ED.EXTPRO ---
HPI - Extremity Problem General Chief complaint: Extremity Problem,Nontraumatic Stated complaint: L LEG SWELLING Time Seen by Provider: 07/28/22 17:12 Source: patient Mode of arrival: ambulatory Limitations: no limitations History of Present Illness HPI Narrative: This is a 37-year-old female that presents to the emergency department for ongoing left lower extremity swelling and pain. Reports she has history of several injuries to the left leg. She does get swelling in the leg at times after she is on her feet a lot. She was on her feet after a yard sale. Her leg has been persistently swollen and painful since. She was seen by her primary doctor and prompted to be seen in the ER to rule out a DVT. She also reports she has been having some vomiting and diarrhea over the last 5 days. She has been evaluated in outside facility for this. This is somewhat improving. Denies fever or abdominal pain. Related Data Home Medications Medication Instructions Recorded Confirmed acetaminophen 300 mg-codeine 60 mg 1 tablet PO Q8H PRN 07/28/22 07/28/22 tablet ciprofloxacin HCl 500 mg tablet 500 mg PO Q12H 07/28/22 07/28/22 ondansetron HCl 4 mg tablet 4 mg PO Q6H 07/28/22 07/28/22 Allergies Allergy/AdvReac Type Severity Reaction Status Date / Time oxycodone Allergy Intermediate lip Verified 07/28/22 19:23 swelling propoxyphene Allergy Intermediate hives, lip Verified 07/28/22 19:23 swelling Iodinated Contrast Media Allergy Unknown Itching Verified 07/28/22 19:23 latex Allergy Unknown Rash Verified 07/28/22 19:23 acetaminophen Allergy Hives Verified 07/28/22 19:23 [From [id number]-N] Contrast Media AdvReac Mild itching Uncoded 07/28/22 19:23 only Review of Systems Review of Systems: CONSTITUTIONAL: Denies fever GASTROINTESTINAL: Reports nausea, vomiting and diarrhea. Denies abdominal pain GENITOURINARY: Denies dysuria SKIN: Denies rash MUSCULOSKELETAL: Reports joint pain, and myalgia. NEUROLOGIC: Denies numbness, or weakness. All systems reviewed & are unremarkable except as noted in HPI and below PMFSH Past Medical History Medical History Abnormal uterine bleeding Anxiety Arthritis Asthma Bipolar 1 disorder Depression DVT (deep venous thrombosis) Endometriosis Fibroids GERD (gastroesophageal reflux disease) GI bleed HLD (hyperlipidemia) HTN (hypertension) Kidney stones Left ovarian cyst Leg fracture, left Pancreatitis PID (pelvic inflammatory disease) Pneumonia Previous known suicide attempt PTSD (post-traumatic stress disorder) PUD (peptic ulcer disease) Surgical History Surgical History H/O hand surgery H/O ovarian cystectomy Left H/O vascular surgery Left leg vein graft H/O: hysterectomy History of appendectomy History of cholecystectomy History of kidney surgery Ureteral stent History of left knee replacement Hx of tonsillectomy Family History Family History Mother Hypertension Father Hypertension Family history of alcoholism Family history of diabetes mellitus in first degree relative Patient's father is in good health Sibling Family history of diabetes mellitus in first degree relative Social History Social History Smoking status: Never smoker Second hand tobacco smoke exposure: No Alcohol intake: never Gender identity (if verbalized by the patient): Female Exam Narrative: GENERAL: Well-appearing, well-nourished, and in no acute distress. HEAD: Normocephalic, atraumatic. EYES: EOMI. CHEST: Clear to auscultation. No respiratory distress. No wheezes rales or rhonchi HEART: Regular rate and rhythm. No murmur heard. Normal peripheral pulses. ABDOMEN: Soft, nontender, nondistended, normal active bowel sounds. EXTREMITIES: Normal range of motion. N
[2022-07-28 18:05] LABS: Appearance Urine Clear (Clear); Bilirubin Urine Negative (Negative); Blood Urine Negative (Negative); Color Urine Yellow (Yellow); Glucose Urine UA Negative (Negative); Ketones Urine Negative (Negative); Leukocyte Esterase Ur Negative LEU/UL (Negative); Nitrate Urine Negative (Negative); Protein Urine Negative (Negative); Specific Grav Ur 1.015 (1.001-1.035); Urobilinogen Urine 0.2 mg/dL (<2.0)
--- NOTE | 2022-07-28 18:09 | PC.NURSE ---
SHANEKA Li notified patient had IV placed. Per SHANEKA Li verbal order read-back, give medications IV.
[2022-07-28 18:13] LABS: Basophils Percent Auto 0.2 % (0.2-1.2); Hematocrit 40.6 % (37.0-47.0); Hemoglobin 13.5 g/dL (12.0-15.0); Immature Granulocyte Absolute 0.03 K/mm3 (0.00-0.031); Immature Granulocyte Percent A 0.3 % (0-0.5); Lymphocytes Absolute Auto 0.95 K/mm3 (0.9-3.2); Lymphocytes Percent Auto 9.2 % (18.3-44.2); Mean Corpuscular HGB Conc 33.3 g/dl (32-36); Mean Corpuscular Hemoglobin 33.5 pg (26-34); Mean Corpuscular Volume 100.7 fl (80-100); Mean Platelet Volume 11.6 fl (7.4-10.4); Monocytes Absolute Auto 0.1 K/mm3 (0.1-0.6); Monocytes Percent Auto 0.7 % (2.6-8.5); Neutrophils Absolute Auto 9.3 K/mm3 (1.3-6.7); Neutrophils Percent Auto 89.6 % (45.5-73.1); Platelet Count Result 203 k/mm3 (150-375); Red Blood Count 4.03 M/mm3 (4.2-5.4); Red Cell Distribution Width 12.7 % (11.5-14.5); White Blood Count 10.4 K/mm3 (4.5-10.0)
[2022-07-28 18:14] LABS: RBC Urine 0-2 /hpf (0-2); Squamous Epithelial Cell Urine Rare /hpf (Few); WBC Urine 0-3 /hpf
[2022-07-28] MEDS: diazePAM INJ (*CRX) 10 MG/2 ML SYRINGE 5 MG IV PUSH (18:16)
[2022-07-28] MEDS: ONDANSETRON INJ 4 MG/2 ML VIAL IV PUSH (18:16)
[2022-07-28 18:25] LABS: Add Urine Microscopic? NO
[2022-07-28 18:26] LABS: Alanine Aminotransferase 51 U/L (6-35); Albumin Level 4.2 g/dL (3.5-5.1); Alkaline Phosphatase 60 U/L (38-126); Anion Gap 11 mmol/L (8-16); Aspartate Amino Transferase 39 U/L (14-36); Bilirubin,Total 0.2 mg/dL (0.2-1.3); Blood Urea Nitrogen 17 mg/dL (7-17); Calcium 9.1 mg/dL (8.4-10.2); Carbon Dioxide 25 mmol/L (22-30); Chloride 104 mmol/L (98-107); Estimated CRCL calculation 140 ml/min; Estimated Glomerular Filt Rate > 60; Glucose 123 mg/dL (65-110); Lipase 67 U/L (23-300); Sodium 140 mmol/L (137-145)
[2022-07-28 18:27] LABS: CRP < 0.5 mg/dL (<1.0)
[2022-07-28 18:33] LABS: NT Pro B Type Natriuretic Pept 290 pg/mL (5-100)
[2022-07-28 19:15] LABS: Erythrocyte Sedimentation Rate 16 mm/hr (0-20)
[2022-07-28] MEDS: SODIUM CHLORIDE 0.9% IV 500 ML 999 ML IV CONT (20:39)
[2022-07-28] MEDS: KETOROLAC 15 MG/ML VIAL (*BKC) IV PUSH (20:39)
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
[2022-07-28 21:56] LABS: SARS-CoV-2 RNA PCR Negative
--- NOTE | 2022-07-28 22:20 | ADMGEN ---
This patient, Iman Vidal, was admitted to [address] [place] [address] Room 330-02. Patient/family oriented to hospital policies and general routines including ID bracelet, bed and alarms, visiting hours, pain management, procedures, bathroom and other care routines, personal items, smoking policy, room service/diet, and visiting hours. Information on how to activate the Rapid Response Team has been discussed. Patient/Family are encouraged to report perceived risks to care and to ask questions if they do not understand what they are told or what they should do.
[2022-07-28] MEDS: LORazepam INJ (*CRX) 2 MG/ML VIAL 1 MG IV PUSH (23:57)
[2022-07-28] MEDS: IMIPRAMINE HCL 25 MG TABLET 75 MG PO (23:58)
[2022-07-29] MEDS: ONDANSETRON INJ 4 MG/2 ML VIAL IV PUSH ×2 (00:01→11:44)
[2022-07-29] MEDS: KETOROLAC 30 MG/ML VIAL (*BKC) 15 MG IV PUSH (05:48)
[2022-07-29 06:00] VITALS: BP 164/81; PULSE 50; RESP 16; TEMP 36.6; O2SAT 100
[2022-07-29] MEDS: CIPROFLOXACIN 500 MG TAB PO ×2 (09:26→20:32)
[2022-07-29] MEDS: GABAPENTIN 400 MG CAPSULE PO ×4 (09:27→20:32)
[2022-07-29] MEDS: CYCLOBENZAPRINE HCL 10 MG TABLET PO ×3 (09:27→17:22)
[2022-07-29] MEDS: ENOXAPARIN 40 MG/0.4 ML SYRINGE SUB-Q (09:27)
[2022-07-29] MEDS: CYANOCOBALAMIN TAB 2,000 MCG, CYANOCOBALAMIN TAB 500 MCG 2500 MCG PO (09:27)
[2022-07-29] MEDS: ACETAMINOPHEN/CODEINE (*CRX) 300/30 MG TABLET 1 TAB PO ×2 (10:24→20:33)
[2022-07-29] MEDS: CODEINE SULFATE (*CRX) 30 MG TABLET PO ×2 (10:26→20:33)
--- NOTE | 2022-07-29 13:08 | PM.IMPN ---
Progress Note: A&P Assessment and Plan (1) Left leg swelling: Code(s): M79.89 - Other specified soft tissue disorders Status: Acute Assessment and Plan: supportive care ruled out DVT ruled out acute arterial occlusion ET wound care consult for edema elevate limb Will consult General surgery as well for evaluation. (2) Acute pain of left lower extremity: Code(s): M79.605 - Pain in left leg Status: Acute Assessment and Plan: likely to be neuropathic in nature continue gabapentin (3) Obesity (BMI 30-39.9): Code(s): E66.9 - Obesity, unspecified Status: Acute Assessment and Plan: lifestyle and diet modifications (4) GERD (gastroesophageal reflux disease): Code(s): K21.9 - Gastro-esophageal reflux disease without esophagitis Status: Acute Assessment and Plan: PPI (5) Anxiety: Code(s): F41.9 - Anxiety disorder, unspecified Status: Acute Assessment and Plan: supportive care Subjective Date/time seen: 07/29/22 13:08 Having worsening left leg pain. Swelling is unchanged. Exam Const: General: comfortable, no acute distress, well developed, alert and awake Nutritional Appearance: average body habitus Orientation/consciousness: patient oriented x3 HENMT: Head: normal to inspection, normocephalic and atraumatic Ears: hearing grossly normal bilaterally Face and sinus: normal facial exam Eyes: General: appearance normal, both eyes and all related structures Pupils: Equal, round and reactive pupils present EOM: EOMs intact bilaterally Neck: Neck: full ROM, no lymphadenopathy and no JVD Thyroid: thyroid normal Lymphatic: no lymphadenopathy noted Resp: Effort & Inspection: normal respiratory effort and able to speak in complete sentences Auscultation: clear to auscultation bilaterally Cardio: Jugular venous distension: no JVD Rate: regular rate Rhythm: regular rhythm Heart sounds: S1 normal heart sound present and S2 normal heart sound present GI: Inspection: normal to inspection : General: Yes deferred Skin: Rashes: no rashes Wounds: no wounds Neuro: General: patient oriented x3, CN's II-XI intact bilaterally and Unable to assess gait Cranial nerves: Yes CN's II-XII intact bilaterally and Yes Equal, round and reactive pupils present Cognition (Neuro): normal cognition Speech: normal speech Gait exam (Neuro): Unable to assess gait Motor exam (neuro): 5/5 motor strength present throughout Sensory Exam: No Sensory deficit (Neuro) Extrem: General: edema ( left lower extremity) left Objective Data Vital Signs Vital Signs: Vital Signs - 24 hr 07/28/22 16:25 07/28/22 17:03 07/28/22 18:46 Temperature 97.5 F L 97.5 F L Pulse Rate 65 67 Respiratory Rate 20 18 Blood Pressure 140/80 159/85 H Pulse Oximetry 99 99 Oxygen Delivery Room Air 07/28/22 19:23 07/28/22 20:37 07/28/22 20:39 Temperature Pulse Rate 50 L 50 L 51 L Respiratory Rate 18 18 18 Blood Pressure 138/94 H 138/94 H Pulse Oximetry 100 99 100 Oxygen Delivery 07/28/22 20:45 07/28/22 20:46 07/28/22 20:47 Temperature Pulse Rate 52 L 50 L Respiratory Rate 19 16 Blood Pressure 140/93 H Pulse Oximetry 99 99 Oxygen Delivery 07/28/22 21:00 07/28/22 21:01 07/28/22 21:27 Temperature Pulse Rate Respiratory Rate Blood Pressure Pulse Oximetry 100 100 99 Oxygen Delivery 07/28/22 21:30 07/28/22 21:31 07/28/22 21:59 Temperature Pulse Rate Respiratory Rate Blood Pressure 159/90 H Pulse Oximetry 97 99 96 Oxygen Delivery 07/28/22 22:36 07/29/22 06:00 Temperature 97.8 F 97.8 F Pulse Rate 65 50 L Respiratory Rate 20 16 Blood Pressure 165/102 H 164/81 H Pulse Oximetry 100 100 Oxygen Delivery Intake/Output Intake/Output: Intake & Output 07/26/22 07/27/22 07/28/22 07/29/22 23:59 23:59 23:59 23:59 Intake Total 600 460 Balance 600 460 Meds/Results
[2022-07-29 14:00] VITALS: BP 132/95; PULSE 46; RESP 20; TEMP 35.8; O2SAT 100
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
[2022-07-29 22:00] VITALS: BP 146/105; PULSE 61; RESP 18; TEMP 35.9; O2SAT 100
--- NOTE | 2022-07-30 00:58 | PC.NURSE ---
Notified that pt blood pressure was 165/105 @ 2200
[2022-07-30] MEDS: CODEINE SULFATE (*CRX) 30 MG TABLET PO ×2 (05:09→12:59)
[2022-07-30] MEDS: ACETAMINOPHEN/CODEINE (*CRX) 300/30 MG TABLET 1 TAB PO ×2 (05:09→12:59)
[2022-07-30 06:00] VITALS: BP 131/91; PULSE 50; RESP 18; TEMP 36.1; O2SAT 100
[2022-07-30] MEDS: CYCLOBENZAPRINE HCL 10 MG TABLET PO ×2 (08:35→12:58)
[2022-07-30] MEDS: ENOXAPARIN 40 MG/0.4 ML SYRINGE SUB-Q (08:35)
[2022-07-30] MEDS: CYANOCOBALAMIN TAB 2,000 MCG, CYANOCOBALAMIN TAB 500 MCG 2500 MCG PO (08:35)
[2022-07-30] MEDS: GABAPENTIN 400 MG CAPSULE PO ×2 (08:35→12:58)
[2022-07-30] MEDS: CIPROFLOXACIN 500 MG TAB PO (08:35)
[2022-07-30] MEDS: ONDANSETRON INJ 4 MG/2 ML VIAL IV PUSH (08:43)
--- NOTE | 2022-07-30 11:30 | PM.DS ---
DS: Admitting Diagnosis Discharge Date July 30, 2022 Admitting Diagnosis lower extremity swelling DS: Discharge Diagnosis Discharge Diagnosis (1) Left leg swelling: Code(s): M79.89 - Other specified soft tissue disorders Status: Acute Assessment and Plan: supportive care ruled out DVT ruled out acute arterial occlusion ET wound care consult for edema elevate limb Will consult General surgery as well for evaluation. appreciate their evaluation. They felt this was likely lymphedema and recommended nonweightbearing status for few days and follow-up with her vascular surgeon. (2) Acute pain of left lower extremity: Code(s): M79.605 - Pain in left leg Status: Acute Assessment and Plan: likely to be neuropathic in nature continue gabapentin (3) Obesity (BMI 30-39.9): Code(s): E66.9 - Obesity, unspecified Status: Acute Assessment and Plan: lifestyle and diet modifications (4) GERD (gastroesophageal reflux disease): Code(s): K21.9 - Gastro-esophageal reflux disease without esophagitis Status: Acute Assessment and Plan: PPI (5) Anxiety: Code(s): F41.9 - Anxiety disorder, unspecified Status: Acute Assessment and Plan: supportive care DS: Summary Hospital Course Hospital Course: Patient came in with left lower extremity edema, history of trauma and history of popliteal graft. Follows with her vascular surgeon every 6 months. Had does have chronic edema in his lower extremity. Workup here is unrevealing. Patient will need follow-up for vascular surgeon. Appreciate surgery evaluated the patient. No need for any further treatment at this time. Time Spent with Patient Time attestation: Total time spent providing and/or coordinating discharge services: Exam Const: General: comfortable, no acute distress, well developed, alert and awake Nutritional Appearance: average body habitus Orientation/consciousness: patient oriented x3 HENMT: Head: normal to inspection, normocephalic and atraumatic Ears: hearing grossly normal bilaterally Face and sinus: normal facial exam Eyes: General: appearance normal, both eyes and all related structures Pupils: Equal, round and reactive pupils present EOM: EOMs intact bilaterally Neck: Neck: full ROM, no lymphadenopathy and no JVD Thyroid: thyroid normal Lymphatic: no lymphadenopathy noted Resp: Effort & Inspection: normal respiratory effort and able to speak in complete sentences Auscultation: clear to auscultation bilaterally Cardio: Jugular venous distension: no JVD Rate: regular rate Rhythm: regular rhythm Heart sounds: S1 normal heart sound present and S2 normal heart sound present GI: Inspection: normal to inspection : General: Yes deferred Skin: Rashes: no rashes Wounds: no wounds Neuro: General: patient oriented x3, CN's II-XI intact bilaterally and Unable to assess gait Cranial nerves: Yes CN's II-XII intact bilaterally and Yes Equal, round and reactive pupils present Cognition (Neuro): normal cognition Speech: normal speech Gait exam (Neuro): Unable to assess gait Motor exam (neuro): 5/5 motor strength present throughout Sensory Exam: No Sensory deficit (Neuro) Extrem: General: edema ( left lower extremity) left Discharge Plan Discharge Attending physician on discharge: Meoñ Canales Consulting providers: Jen Fernandez Discharging Clinician: Meño Canales Patient Disposition: Home, Self-Care Activity: no preference Diet: as tolerated Patient Instructions: Antibiotic Form, Pain Management (GEN), Chronic Pain (GEN) Stand Alone Forms: General Discharge Information Follow-up/Referrals: Favio Mann PA-C [Primary Care Provider] - Discharge Medications: Continued ciprofloxacin HCl 500 mg tablet 500 mg PO Q12H ondansetron HCl 4 mg tablet 4 mg PO Q6H acetaminophen-codeine 300-60 mg tablet
== END 2022-07-30 14:15 | disposition home or self-care (01) ==
LOC: ANHED 17:56 → ANH3MEDSUR 21:58
PROVIDERS: Physician Assistant; Admitting Provider Internal Medicine; Emergency Provider Emergency Medicine; PCP Physician Assistant; Visit Provider Chiropractor
DX: M79.89 Other specified soft tissue disorders (principal); M79.605 Pain in left leg; E66.9 Obesity, unspecified; Z95.820 Peripheral vascular angioplasty status with implants and grafts; Z68.34 Body mass index [BMI] 34.0-34.9, adult; K21.9 Gastro-esophageal reflux disease without esophagitis; F41.9 Anxiety disorder, unspecified; G62.9 Polyneuropathy, unspecified; R19.7 Diarrhea, unspecified; K27.9 Peptic ulcer, site unspecified, unspecified as acute or chronic, without hemorrhage or perforation; E78.5 Hyperlipidemia, unspecified; I10 Essential (primary) hypertension; Z20.822 Contact with and (suspected) exposure to COVID-19; J45.909 Unspecified asthma, uncomplicated; F31.9 Bipolar disorder, unspecified; N80.9 Endometriosis, unspecified; F43.10 Post-traumatic stress disorder, unspecified; Z90.710 Acquired absence of both cervix and uterus; F12.90 Cannabis use, unspecified, uncomplicated; Z96.652 Presence of left artificial knee joint; Z96.0 Presence of urogenital implants; Z86.718 Personal history of other venous thrombosis and embolism; Z79.1 Long term (current) use of non-steroidal anti-inflammatories (NSAID); Z79.51 Long term (current) use of inhaled steroids; Z79.899 Other long term (current) drug therapy
CPT/HCPCS: 36415; 71046; 73590; 73610; 80053; 81003; 81025; 83690; 83880; 85025; 85652; 86140; 93971; 96361; 96365; 96372; 96375; 96376; 97161; 97165; 99285; A9270; C9803; G0378; J0131; J1650; J1885; J2060; J2405; J3360; J7040; U0003; U0005

== ENCOUNTER 2022-09-29 08:14 | Outpatient (CLI) | payer MEDICARE, MEDICAID, SELFPAY ==
--- NOTE | 2022-10-26 15:45 | WPDSLEEPSTUD ---
Sleep Study Date of Study: 09/29/22 Ordering Provider: Favio Mann PA-C Interpreting Physician: Iman Clements DO Sleep Study Type: Polysomnogram Height: 1.75 m Weight: 98.883 kg Body Mass Index: 32.1 Neck Circumference (inches): 13.5 [place]: 1 Reason for Sleep Study Daytime hypersomnia Sleep History The patient is a 37-year-old female with anxiety, asthma, bipolar disorder, depression, endometriosis, GERD, hypertension, hyperlipidemia, pancreatitis, pelvic inflammatory disease, ovarian cysts, PTSD and peptic ulcer disease that had a sleep study ordered for evaluation of hypersomnia. *The patient did not fill out the sleep intake forms.* [facility] Past Medical History Medical History Abnormal uterine bleeding Anxiety Arthritis Asthma Bipolar 1 disorder Depression DVT (deep venous thrombosis) Endometriosis Fibroids GERD (gastroesophageal reflux disease) GI bleed HLD (hyperlipidemia) HTN (hypertension) Kidney stones Left ovarian cyst Leg fracture, left Pancreatitis PID (pelvic inflammatory disease) Pneumonia Previous known suicide attempt PTSD (post-traumatic stress disorder) PUD (peptic ulcer disease) Surgical History Surgical History H/O hand surgery H/O ovarian cystectomy Left H/O vascular surgery Left leg vein graft H/O: hysterectomy History of appendectomy History of cholecystectomy History of kidney surgery Ureteral stent History of left knee replacement Hx of tonsillectomy Family History Family History Mother Hypertension Father Hypertension Family history of alcoholism Family history of diabetes mellitus in first degree relative Patient's father is in good health Sibling Family history of diabetes mellitus in first degree relative Social History Social History Smoking status: Never smoker Second hand tobacco smoke exposure: No Alcohol intake: former Substance use: current Substance use type: marijuana Lack of Transportation: YES Lack of Food: Sometimes True Current Housing: I Have Housing Concerned About Future Housing: No Difficulty Paying Gas/Electric Bills: No Difficulty Paying for Meds: No Currently Unemployed: No Education: High School Diploma/GED Difficulty w/ Childcare or Family Care: No Gender identity (if verbalized by the patient): Female Spiritual care concerns: No Medications Home Medications Medication Instructions Recorded Confirmed Type cyclobenzaprine 10 mg tablet 10 mg PO TID #90 tabs 07/08/21 08/28/22 Rx gabapentin 400 mg capsule 400 mg PO QID #360 caps 07/08/21 08/28/22 Rx acetaminophen 300 mg-codeine 60 mg 1 tablet PO Q8H PRN Pain 07/28/22 08/28/22 History tablet albuterol sulfate 2.5 mg/3 mL 2.5 mg inhalation Q6H PRN 07/28/22 08/28/22 History (0.083 %) solution for nebulization Bronchospasm ondansetron HCl 4 mg tablet 4 mg PO Q6H 07/28/22 08/28/22 History Sleep Procedure This test was performed using the [place] [employer] multiple channel system including EOG, EEG, submental EMG, EKG, nasal and oral airflow using thermistors and nasal pressure sensors, chest and abdominal belts for body position data, and pulse oximetry. Video monitoring was also performed. The study was scored using CMS guidelines. Sleep Architecture The patient had a total recording time of 466.3 minutes and total sleep time of 382 minutes. The sleep efficiency was 81.9%. Sleep latency was 67.7 minutes and REM latency was 75 minutes. The patient had 18 awakenings. The patient spent 11 minutes, 2.9% of total sleep time in stage N1. The patient spent 272 minutes, 71.2% of total sleep time in stage N2. The patient spent 30 minutes, 7.9% of total sleep time in stage N3. The patient spent 69 minutes, 18.1
[2022-10-26 15:49] VITALS: BMI 32.1
== END 2022-09-30 06:38 | disposition home or self-care (01) ==
LOC: ANHCSM 08:15
PROVIDERS: PCP Physician Assistant; Visit Provider Physician Assistant
DX: G47.33 Obstructive sleep apnea (adult) (pediatric) (principal); G47.10 Hypersomnia, unspecified
CPT/HCPCS: 95810

== ENCOUNTER 2022-10-16 14:23 | Outpatient (CLI) | payer MEDICARE, MEDICAID, SELFPAY ==
--- NOTE | ~2022-10-16 | CT_ITS ---
EXAMINATION: CT abdomen pelvis wo con DATE: 10/16/2022 14:48 INDICATION: Right flank pain. Nausea, vomiting, constipation, diarrhea. TECHNIQUE: Computed tomography (CT) of the abdomen and pelvis was performed without intravenous contr ast. Automated exposure control and iterative reconstruction technique were employed. Exam dose: 907 .26 mGy-cm total exam DLP. COMPARISON: December 15, 2020 CT abdomen pelvis FINDINGS: The lung bases are clear. Normal heart size. No pericardial or pleural effusion. Status post cholecystectomy. The liver, spleen, pancreas, and adrenal glands and kidneys appear unrem arkable on this limited noncontrast examination. No urinary tract calculus or hydroureteronephrosis. The urinary bladder is unremarkable. The uterus is surgically absent. No bowel obstruction, bowel wall thickening, pneumatosis or intraperitoneal free air. Normal caliber of the abdominal aorta. No intraperitoneal or retroperitoneal or pelvic mass lesion or adenopathy or ascites. No suspicious osteolytic or osteoblastic lesions. Bilateral hip osteoarthritis. IMPRESSION: No urinary tract calculus or hydroureteronephrosis Status post cholecystectomy Status post hysterectomy Reviewed, dictated and finalized at [facility]. Reviewed, dictated and finalized at location B. YE GUNNER
--- NOTE | ~2022-10-16 | XR_ITS ---
XR abdomen/kub 1V 10/16/2022 14:42 Indication: Right flank pain. Constipation. Procedure: KUB Comparison: 11/13/2014 Findings: Lung bases are unremarkable. Bowel pattern is nonobstructive. There are cholecystectomy cli ps. There are pelvic phleboliths. No definite renal stones. No acute osseous abnormality. There is mo derate osteoarthritis of the hips. Impression: 1: No acute abdominal abnormality. Reviewed, dictated and finalized at location A. [facility] PROGRAM CONSULTANT Impression: 1: No acute abdominal abnormality.
== END 2022-10-16 14:24 | disposition home or self-care (01) ==
LOC: ANHIMG 14:27
PROVIDERS: PCP Physician Assistant; Visit Provider Nurse Practitioner Family
DX: R10.9 Unspecified abdominal pain (principal); Z90.49 Acquired absence of other specified parts of digestive tract
CPT/HCPCS: 74018; 74176

== ENCOUNTER 2023-03-18 01:15 | Day surgery (SDC) | payer MEDICARE, MEDICAID, SELFPAY ==
[2023-03-08 08:53] VITALS: BMI 32.2
[2023-03-18 10:27] VITALS: BP 142/96; PULSE 75; RESP 18; TEMP 36.4; O2SAT 100; BMI 33.0
--- NOTE | 2023-03-18 10:41 | PM.HPGS ---
History of Present Illness History of Present Illness Consent: Risks, benefits, and alternatives have been discussed and questions answered. Patient agrees to proceed with procedure. Chief complaint: abnormal weight loss, anorexia Narrative: Iman Vidal is a 37 year old female Referred for EGD by SHANEKA Ng. patient reports a 200lb weight loss over the last several years. She states for several years has frequent ongoing nausea and vomiting. Patient denies any bleeding. She notices vague right upper quadrant abdominal pain an EGD is requested to assess more thoroughly. She and her boyfriend report excessive testing to find the etiology for this. Currently she is on Tylenol No. 4 and hydrocortisone which she takes regularly. She smokes marijuana several times a week. Family history noncontributory. Review of Systems Review of Systems: Review of systems noncontributory. [facility] Past Medical History Medical History Abnormal uterine bleeding Anxiety Arthritis Asthma Bipolar 1 disorder Depression DVT (deep venous thrombosis) Endometriosis Fibroids GERD (gastroesophageal reflux disease) GI bleed HLD (hyperlipidemia) HTN (hypertension) Kidney stones Left ovarian cyst Leg fracture, left Pancreatitis PID (pelvic inflammatory disease) Pneumonia Previous known suicide attempt PTSD (post-traumatic stress disorder) PUD (peptic ulcer disease) Surgical History Surgical History H/O hand surgery H/O ovarian cystectomy Left H/O vascular surgery Left leg vein graft H/O: hysterectomy History of appendectomy History of cholecystectomy History of kidney surgery Ureteral stent History of left knee replacement Hx of tonsillectomy Family History Family History Mother Hypertension Father Hypertension Family history of alcoholism Family history of diabetes mellitus in first degree relative Patient's father is in good health Sibling Family history of diabetes mellitus in first degree relative Social History Social History Smoking status: Never smoker Second hand tobacco smoke exposure: No Alcohol intake: never Substance use: current Substance use type: marijuana Lack of Transportation: YES Lack of Food: Sometimes True Current Housing: I Have Housing Concerned About Future Housing: No Difficulty Paying Gas/Electric Bills: No Difficulty Paying for Meds: No Currently Unemployed: No Education: High School Diploma/GED Difficulty w/ Childcare or Family Care: No Living arrangements: with family Gender identity (if verbalized by the patient): Female Spiritual care concerns: No Meds Home Medications and Allergies Home Medications Medication Instructions Recorded Confirmed Type cyclobenzaprine 10 mg tablet 10 mg PO TID #90 tabs 07/08/21 03/08/23 Rx acetaminophen 300 mg-codeine 60 mg 1 tablet PO Q8H PRN Pain 07/28/22 03/08/23 History tablet albuterol sulfate 2.5 mg/3 mL 2.5 mg inhalation Q6H PRN 07/28/22 03/08/23 History (0.083 %) solution for nebulization Bronchospasm ondansetron HCl 4 mg tablet 4 mg PO Q6H 07/28/22 03/08/23 History hydrocodone 7.5 mg-acetaminophen 15 ml PO Q6H PRN Pain 12/11/22 03/08/23 History 325 mg/15 mL oral solution clonazepam 0.5 mg tablet (Klonopin) 0.5 mg PO PRN anxiety 03/08/23 03/08/23 History gabapentin 400 mg capsule 400 mg PO TID 03/08/23 03/08/23 History Allergies Allergy/AdvReac Type Severity Reaction Status Date / Time oxycodone Allergy Intermediate lip Verified 03/08/23 08:50 swelling propoxyphene Allergy Intermediate hives, lip Verified 03/08/23 08:50 swelling Iodinated Contrast Media Allergy Unknown Itching Verified 03/08/23 08:50 latex Allergy Unknown Rash Verified 03/08/23 08:
[2023-03-18] MEDS: LACTATED RINGERS 1,000 ML 150 ML IV CONT (10:49)
--- NOTE | 2023-03-18 11:10 | WPDANESEPPF ---
Anes - Initial Pre Proc Eval Procedure: Operation Date: 03/18/23 11:30 Proposed Procedures p Esophagogastroduodenoscopy - Ricardo Ca MD Date/Time: 03/18/23 11:10 Surgeon: Ricardo Ca MD Pre Op Diagnosis: abnormal weight loss, anorexia Patient Data Age: 37 Gender: F Height: 1.75 m Weight: 101.7 kg Last Vital Signs Temp 97.5 F L 03/18/23 10:27 Pulse 75 03/18/23 10:27 Resp 18 03/18/23 10:27 BP 148/106 H 03/18/23 10:27 Pulse Ox 100 03/18/23 10:27 O2 Del Method Room Air 03/18/23 10:27 Allergies Allergy/AdvReac Type Severity Reaction Status Date / Time oxycodone Allergy Intermediate lip Verified 03/08/23 08:50 swelling propoxyphene Allergy Intermediate hives, lip Verified 03/08/23 08:50 swelling Iodinated Contrast Media Allergy Unknown Itching Verified 03/08/23 08:50 latex Allergy Unknown Rash Verified 03/08/23 08:50 acetaminophen Allergy Hives Verified 03/08/23 08:50 [From Darvocet-N] Contrast Media AdvReac Mild itching Uncoded 03/08/23 08:50 only Home Medications Medication Instructions Recorded Confirmed Type cyclobenzaprine 10 mg tablet 10 mg PO TID #90 tabs 07/08/21 03/08/23 Rx acetaminophen 300 mg-codeine 60 mg 1 tablet PO Q8H PRN Pain 07/28/22 03/08/23 History tablet albuterol sulfate 2.5 mg/3 mL 2.5 mg inhalation Q6H PRN 07/28/22 03/08/23 History (0.083 %) solution for nebulization Bronchospasm ondansetron HCl 4 mg tablet 4 mg PO Q6H 07/28/22 03/08/23 History hydrocodone 7.5 mg-acetaminophen 15 ml PO Q6H PRN Pain 12/11/22 03/08/23 History 325 mg/15 mL oral solution clonazepam 0.5 mg tablet (Klonopin) 0.5 mg PO PRN anxiety 03/08/23 03/08/23 History gabapentin 400 mg capsule 400 mg PO TID 03/08/23 03/08/23 History Patient hx anesthesia problems: none Family hx anesthesia problems: none Results Review: All pre-operative results and documents have been reviewed as part of the pre-operative evaluation. [facility] Past Medical History Medical History Abnormal uterine bleeding Anxiety Arthritis Asthma Bipolar 1 disorder Depression DVT (deep venous thrombosis) Endometriosis Fibroids GERD (gastroesophageal reflux disease) GI bleed HLD (hyperlipidemia) HTN (hypertension) Kidney stones Left ovarian cyst Leg fracture, left Pancreatitis PID (pelvic inflammatory disease) Pneumonia Previous known suicide attempt PTSD (post-traumatic stress disorder) PUD (peptic ulcer disease) Surgical History Surgical History H/O hand surgery H/O ovarian cystectomy Left H/O vascular surgery Left leg vein graft H/O: hysterectomy History of appendectomy History of cholecystectomy History of kidney surgery Ureteral stent History of left knee replacement Hx of tonsillectomy Family History Family History Mother Hypertension Father Hypertension Family history of alcoholism Family history of diabetes mellitus in first degree relative Patient's father is in good health Sibling Family history of diabetes mellitus in first degree relative Social History Social History Smoking status: Never smoker Second hand tobacco smoke exposure: No Alcohol intake: never Substance use: current Substance use type: marijuana Lack of Transportation: YES Lack of Food: Sometimes True Current Housing: I Have Housing Concerned About Future Housing: No Difficulty Paying Gas/Electric Bills: No Difficulty Paying for Meds: No Currently Unemployed: No Education: High School Diploma/GED Difficulty w/ Childcare or Family Care: No Living arrangements: with family Gender identity (if verbalized by the patient): Female Spiritual care concerns: No Anes - Eval Final PreProcedure Day of Procedure 03/18/23 11
[2023-03-18 11:34] VITALS: BP 123/79; PULSE 75; RESP 18; O2SAT 100
[2023-03-18 11:44] VITALS: BP 120/80; PULSE 76; RESP 18; O2SAT 100
[2023-03-18 11:54] VITALS: BP 123/78; PULSE 76; RESP 18; O2SAT 100
== END 2023-03-18 12:05 | disposition home or self-care (01) ==
PROVIDERS: PCP Physician Assistant; Visit Provider Internal Medicine Gastroenterology
PROC: 0DJ08ZZ Inspection of Upper Intestinal Tract, Via Natural or Artificial Opening Endoscopic (ICD-10-PCS; CPT 43235; principal; 2023-03-18 11:30)
DX: R11.2 Nausea with vomiting, unspecified (principal); R63.4 Abnormal weight loss; K21.9 Gastro-esophageal reflux disease without esophagitis; I10 Essential (primary) hypertension; E78.5 Hyperlipidemia, unspecified; F31.9 Bipolar disorder, unspecified; F41.9 Anxiety disorder, unspecified; F43.10 Post-traumatic stress disorder, unspecified; Z86.718 Personal history of other venous thrombosis and embolism; F12.90 Cannabis use, unspecified, uncomplicated; E66.9 Obesity, unspecified; Z68.33 Body mass index [BMI] 33.0-33.9, adult
CPT/HCPCS: 43239; 87081; J7120

== ENCOUNTER 2023-04-22 19:04 | Emergency (ER) | payer MEDICARE, MEDICAID, SELFPAY ==
--- NOTE | ~2023-04-22 | CT_ITS ---
EXAMINATION: CT abdomen pelvis wo con DATE: 04/22/2023 23:29 INDICATION: Diffuse abdominal pain TECHNIQUE: Computed tomography (CT) of the abdomen and pelvis was performed without intravenous contr ast. The dose-length product (DLP) was 1082.05 mGy-cm. Automated exposure control and iterative recon struction technique were employed. COMPARISON: 10/16/2022 FINDINGS: The lung bases are clear. The heart size is normal. The gallbladder is surgically absent. T he liver, spleen, pancreas, and adrenal glands are normal. The kidneys are unremarkable. No pathologi arturo enlarged abdominal or pelvic lymph nodes are identified. No free intraperitoneal gas or evidenc e of bowel obstruction. There is mild lumbar spondylosis. IMPRESSION: 1. No CT correlate for the patient's symptoms. Reviewed, dictated and finalized at location A.
[2023-04-22 19:32] VITALS: BP 165/98; PULSE 89; RESP 16; TEMP 36.3; O2SAT 100
[2023-04-22 19:56] LABS: Basophils Absolute Auto 0.1 K/mm3 (0.0-0.1); Basophils Percent Auto 0.4 % (0.2-1.2); Eosinophils Absolute Auto 0.1 K/mm3 (0-0.3); Eosinophils Percent Auto 0.6 % (0-4.4); Hematocrit 46.1 % (37.0-47.0); Hemoglobin 15.4 g/dL (12.0-15.0); Immature Granulocyte Absolute 0.04 K/mm3 (0.00-0.031); Immature Granulocyte Percent A 0.3 % (0-0.5); Lymphocytes Absolute Auto 2.25 K/mm3 (0.9-3.2); Lymphocytes Percent Auto 16.5 % (18.3-44.2); Mean Corpuscular HGB Conc 33.4 g/dl (32-36); Mean Corpuscular Hemoglobin 33.6 pg (26-34); Mean Corpuscular Volume 100.4 fl (80-100); Mean Platelet Volume 10.4 fl (7.4-10.4); Monocytes Absolute Auto 0.6 K/mm3 (0.1-0.6); Neutrophils Absolute Auto 10.7 K/mm3 (1.3-6.7); Neutrophils Percent Auto 78.2 % (45.5-73.1); Platelet Count Result 284 k/mm3 (150-375); Red Blood Count 4.59 M/mm3 (4.2-5.4); Red Cell Distribution Width 12.2 % (11.5-14.5); White Blood Count 13.6 K/mm3 (4.5-10.0)
[2023-04-22 20:00] LABS: Appearance Urine Clear (Clear); Bilirubin Urine Negative (Negative); Blood Urine Negative (Negative); Color Urine Yellow (Yellow); Glucose Urine UA Negative (Negative); Ketones Urine Negative (Negative); Leukocyte Esterase Ur Negative LEU/UL (Negative); Nitrate Urine Negative (Negative); Protein Urine Negative (Negative); Specific Grav Ur 1.004 (1.001-1.035); Urobilinogen Urine 0.2 mg/dL (<2.0)
[2023-04-22 20:05] LABS: Alanine Aminotransferase 19 U/L (6-35); Albumin Level 4.6 g/dL (3.5-5.1); Alkaline Phosphatase 59 U/L (38-126); Anion Gap 7 mmol/L (8-16); Aspartate Amino Transferase 33 U/L (14-36); Bilirubin,Total 0.3 mg/dL (0.2-1.3); Blood Urea Nitrogen 13 mg/dL (7-17); Calcium 9.1 mg/dL (8.4-10.2); Carbon Dioxide 29 mmol/L (22-30); Chloride 105 mmol/L (98-107); Estimated CRCL calculation 134 ml/min; Estimated Glomerular Filt Rate > 60; Glucose 83 mg/dL (65-110); Lipase 109 U/L (23-300); Potassium 4.3 mmol/L (3.4-5.0); Sodium 141 mmol/L (137-145)
[2023-04-22 20:09] LABS: Add Urine Microscopic? NO
--- NOTE | 2023-04-22 23:40 | ED.NAVMDI ---
HPI - Nausea/Vomiting/Diarrhea General Chief complaint: Nausea/Vomiting/Diarrhea Stated complaint: abd pain. n/v/d Time Seen by Provider: 04/22/23 22:30 History of Present Illness HPI Narrative: Patient is a 37-year-old female here for evaluation of nausea, vomiting and diffuse abdominal pain x1 day. Patient states he has been unable to tolerate any p.o. and has been vomiting nonstop. The abdominal pain is present in her epigastric region and does radiate to her back. She does report recent antibiotic use for spider bite. Reports diarrhea does have a foul smell. Denies recent sick contacts or new or suspicious foods. She had a recent EGD with Dr. Ca that was normal. Chronic abdominal pain and nausea thought to be related to marijuana use. Related Data Home Medications Medication Instructions Recorded Confirmed acetaminophen 300 mg-codeine 60 mg 1 tablet PO Q8H PRN Pain 07/28/22 03/08/23 tablet albuterol sulfate 2.5 mg/3 mL 2.5 mg inhalation Q6H PRN 07/28/22 03/08/23 (0.083 %) solution for nebulization Bronchospasm ondansetron HCl 4 mg tablet 4 mg PO Q6H 07/28/22 03/08/23 hydrocodone 7.5 mg-acetaminophen 15 ml PO Q6H PRN Pain 12/11/22 03/08/23 325 mg/15 mL oral solution clonazepam 0.5 mg tablet (Klonopin) 0.5 mg PO PRN anxiety 03/08/23 03/08/23 gabapentin 400 mg capsule 400 mg PO TID 03/08/23 03/08/23 Allergies Allergy/AdvReac Type Severity Reaction Status Date / Time oxycodone Allergy Intermediate lip Verified 03/26/23 13:07 swelling propoxyphene Allergy Intermediate hives, lip Verified 03/26/23 13:07 swelling Iodinated Contrast Media Allergy Unknown Itching Verified 03/26/23 13:07 latex Allergy Unknown Rash Verified 03/26/23 13:07 acetaminophen Allergy Hives Verified 03/26/23 13:07 [From Oralia-Adrian] Contrast Media AdvReac Mild itching Uncoded 03/26/23 13:07 only Review of Systems Review of Systems: Gen.: Denies fevers or chills Eyes: Denies eye pain or visual change ENT: Denies congestion Respiratory: Denies shortness of breath or cough CV: Denies chest pain or palpitations GI: Reports abdominal pain, nausea and diarrhea denies burning, urgency, frequency or hematuria Musculoskeletal: Denies back pain or muscle pain Neuro: Denies numbness, tingling, weakness or focal weakness Skin: Denies rash Except as documented, all other systems reviewed and negative PMFSH Past Medical History Medical History Abnormal uterine bleeding Anxiety Arthritis Asthma Bipolar 1 disorder Depression DVT (deep venous thrombosis) Endometriosis Fibroids GERD (gastroesophageal reflux disease) GI bleed HLD (hyperlipidemia) HTN (hypertension) Kidney stones Left ovarian cyst Leg fracture, left Pancreatitis PID (pelvic inflammatory disease) Pneumonia Previous known suicide attempt PTSD (post-traumatic stress disorder) PUD (peptic ulcer disease) Surgical History Surgical History H/O hand surgery H/O ovarian cystectomy Left H/O vascular surgery Left leg vein graft H/O: hysterectomy History of appendectomy History of cholecystectomy History of kidney surgery Ureteral stent History of left knee replacement Hx of tonsillectomy Family History Family History Mother Hypertension Father Hypertension Family history of alcoholism Family history of diabetes mellitus in first degree relative Patient's father is in good health Sibling Family history of diabetes mellitus in first degree relative Social History Social History Smoking status: Never smoker Second hand tobacco smoke exposure: No Alcohol intake: never Substance use: current Substance use type: marijuana Lack of Transportation: YES Lack of Food: Sometimes True Current Housing: I H
[2023-04-23] MEDS: SODIUM CHLORIDE 0.9% IV 1,000 ML 999 ML IV CONT (00:05)
[2023-04-23] MEDS: DICYCLOMINE HCL INJ 20 MG/2 ML VIAL IM (00:06)
[2023-04-23] MEDS: FAMOTIDINE 20 MG/2 ML VIAL IV PUSH (00:06)
[2023-04-23] MEDS: ONDANSETRON INJ 4 MG/2 ML VIAL IV PUSH (00:06)
[2023-04-23] MEDS: METOCLOPRAMIDE HCL INJ 10 MG/2 ML VIAL IV PUSH (01:46)
[2023-04-23] MEDS: diphenhydrAMINE HCl INJ 50 MG/ML VIAL 25 MG IV PUSH (01:46)
[2023-04-23] MEDS: BELLADONNA ALK/PHENOB ELIX 10 ML, MAG HYDROX/ALUMINUM HYD/SIMETH 30 ML, LIDOCAINE HCL 2... PO (02:10)
[2023-04-23] MEDS: MORPHINE SULFATE (*CRX) 4 MG/ML INJ IV PUSH (02:22)
[2023-04-23 03:00] VITALS: BP 133/87; PULSE 74; RESP 20; O2SAT 100
== END 2023-04-23 03:48 | disposition home or self-care (01) ==
PROVIDERS: Emergency Medicine; Emergency Provider Physician Assistant; PCP Physician Assistant
DX: K52.9 Noninfective gastroenteritis and colitis, unspecified (principal); N80.9 Endometriosis, unspecified; I10 Essential (primary) hypertension; J45.909 Unspecified asthma, uncomplicated; K21.9 Gastro-esophageal reflux disease without esophagitis; M19.90 Unspecified osteoarthritis, unspecified site; Z96.652 Presence of left artificial knee joint; Z87.442 Personal history of urinary calculi; Z86.718 Personal history of other venous thrombosis and embolism; Z87.01 Personal history of pneumonia (recurrent); Z87.11 Personal history of peptic ulcer disease; Z90.710 Acquired absence of both cervix and uterus
CPT/HCPCS: 36415; 74176; 80053; 81003; 81025; 83690; 85025; 96361; 96372; 96374; 96375; 99284; A9270; J0500; J1200; J2270; J2405; J2765; J7030

== ENCOUNTER 2023-06-03 10:26 | Outpatient (CLI) | payer MEDICARE, MEDICAID, SELFPAY ==
--- NOTE | ~2023-06-03 | MR_ITS ---
EXAMINATION: MR brain IAC wo con DATE: 06/03/2023 11:41 INDICATION: Headache, vertigo and nausea. TECHNIQUE: Magnetic resonance imaging (MRI) of the brain and brainstem was performed without intraven ous contrast. Sequences included sagittal and axial T1-weighted FSE, axial diffusion-weighted FS EPI, axial T2*-weighted GRE, axial 3D SWAN, axial T2-weighted FLAIR Propeller, axial T2-weighted Propelle r, small [id number] coronal FIESTA, small [id number] coronal T1-weighted FSE, and small field-o f-view axial T1-weighted SPGR. Apparent diffusion coefficient (ADC) maps were created. COMPARISON: Head CT dated 03/27/2015 FINDINGS: There are no areas of restricted diffusion to suggest acute infarction. No intracranial hemorrhage or abnormal intracranial mass lesion. There are no intraparenchymal signal abnormalities seen on the ot her pulse sequences. The ventricles are symmetric and normal in size. There are no abnormal extra-axi al fluid collections. Low-lying cerebellar tonsils which extends up to 3-4 mm below level of the fora men magnum on the right. No cerebellopontine angle masses. No evidence of mastoid or middle ear fluid . Flow voids are seen in the cerebral arteries on the T2-weighted sequences consistent with their exp ected patency. Mild mucosal thickening in the left frontal and bilateral ethmoid sinuses. Visualized orbits and soft tissues are unremarkable. IMPRESSION: 1. Low-lying cerebellar tonsils. Otherwise normal brain with no acute intracranial process. Reviewed, dictated and finalized at location A. IMPRESSION: 1. Low-lying cerebellar tonsils. Otherwise normal brain with no acute intracran ial process.
== END 2023-06-03 10:27 | disposition home or self-care (01) ==
PROVIDERS: PCP Physician Assistant; Visit Provider Physician Assistant
DX: R51.9 Headache, unspecified (principal); R11.0 Nausea
CPT/HCPCS: 70551

== ENCOUNTER 2023-12-07 10:18 | Outpatient (CLI) | payer OTHER, MEDICARE, MEDICAID, SELFPAY ==
--- NOTE | 2023-12-07 11:00 | NEURO_ITS ---
Impression: # Complains of right upper extremity pain/paresthesia. ? # Early Carpal Tunnel Syndrome involving sensory nerves mainly to index finger. ? # No ulnar neuropathy. ? # Normal needle/EMG exam including proximal muscles. ? # Clinical correlation recommended. ? Nerve Conduction Studies Anti Sensory Summary Table Stim Site NR Peak (ms) P-T Amp (?V) Site1 Site2 Delta-P (ms) Dist (cm) [place] (m/s) Right Median Anti Sensory (2-3nd Digit) Wrist 4.2 19.3 Wrist 2-3nd Digit 4.2 14.0 33 Wrist 2.8 16.7 Wrist 2-3nd Digit 4.2 14.0 33 Right Radial Anti Sensory (Base 1st Digit) Wrist 2.1 22.9 Wrist Base 1st Digit 2.1 0.0 Right Ulnar Anti Sensory (5th Digit) Wrist 2.5 58.2 Wrist 5th Digit 2.5 14.0 56 Motor Summary Table Stim Site NR Onset (ms) O-P Amp (mV) Site1 Site2 Delta-0 (ms) Dist (cm) [place] (m/s) Right Median Motor (Abd Poll Brev) Wrist 3.3 4.6 Elbow Wrist 4.9 29.0 59 Elbow 8.2 2.9 Right Ulnar Motor (Abd Dig Minimi) Wrist 2.6 5.8 A Elbow Wrist 4.9 29.0 59 A Elbow 7.5 5.1 F Wave Studies NR F-Lat (ms) L-R F-Lat (ms) Right Median (Mrkrs) (Abd Poll Brev) 27.72 Right Ulnar (Mrkrs) (Abd Dig Min) 26.98 EMG Side Muscle Nerve Root Ins Act Fibs Amp Dur Recrt Comment Right 1stDorInt Ulnar C8-T1 Nml Nml Nml Nml Nml Right Ext Indicis Radial (Post Int) C7-8 Nml Nml Nml Nml Nml Right Ext Digitorum Radial (Post Int) C7-8 Nml Nml Nml Nml Nml Right BrachioRad Radial C5-6 Nml Nml Nml Nml Nml Right PronatorTeres Median C6-7 Nml Nml Nml Nml Nml Right Abd Poll Brev Median C8-T1 Nml Nml Nml Nml Nml Right ABD Dig Min Ulnar C8-T1 Nml Nml Nml Nml Nml Right Biceps Musculocut C5-6 Nml Nml Nml Nml Nml Right Triceps Radial C6-7-8 Nml Nml Nml Nml Nml Right Deltoid Axillary C5-6 Nml Nml Nml Nml Nml MTDD
== END 2023-12-07 10:19 | disposition home or self-care (01) ==
LOC: ANHNEURO 10:18
PROVIDERS: PCP Physician Assistant; Visit Provider Student in an Organized Health Care Education/Training Program
DX: G56.01 Carpal tunnel syndrome, right upper limb (principal)
CPT/HCPCS: 95886; 95909

== ENCOUNTER 2024-03-16 13:48 | Outpatient (CLI) | payer MEDICARE, MEDICAID, SELFPAY ==
[2024-03-16 14:54] LABS: Anion Gap 6 mmol/L (4-12); Blood Urea Nitrogen 13 mg/dL (7-17); Calcium 9.3 mg/dL (8.4-10.2); Carbon Dioxide 31 mmol/L (22-30); Chloride 103 mmol/L (98-107); Estimated Glomerular Filt Rate > 60; Glucose 82 mg/dL (65-110); Potassium 3.7 mmol/L (3.4-5.0); Sodium 140 mmol/L (137-145)
== END 2024-03-16 13:49 | disposition home or self-care (01) ==
PROVIDERS: PCP Physician Assistant; Visit Provider Physician Assistant
DX: E87.6 Hypokalemia (principal)
CPT/HCPCS: 36415; 80048